=== PATIENT | female | born 1940 | race Caucasian/White ===

== ENCOUNTER 2020-05-04 14:00 | Day surgery (SDC) | payer MEDICARE, OTHER ==
[2020-05-04] VITALS (9 sets, daily range): BP systolic 121–137; BP diastolic 65–79
[~2020-05-04] VITALS: Ht 165.1 cm; Wt 70.0 kg
--- NOTE | 2020-05-04 12:48 | Diagnostic Imaging Report ---
PATIENT HISTORY: Chest pain. Shortness of breath, hypertension. Lethargy. TECHNIQUE: Single frontal view of the chest. COMPARISON: None. FINDINGS: The lung volumes are mildly large. No focal consolidation is seen. No large pleural effusion or pneumothorax is seen. The cardiomediastinal silhouette is normal in size and contour. No acute osseous abnormality is seen. IMPRESSION: Mildly large lung volumes with no acute pulmonary abnormality seen. Dictated by: Dictated on workstation # [id number]
[2020-05-04 12:50] LABS: HEMOGLOBIN 12.8 G/DL (11.5-16.0); MEAN PLATELET VOLUME 9.2 FL (7.4-10.4); RED CELL DISTRIBUTION WIDTH 12.7 % (10.0-14.5); WHITE BLOOD COUNT 6.3 10^3/uL (4.3-11.0)
[2020-05-04 13:11] LABS: PROTHROMBIN TIME PATIENT 13.4 SEC (12.2-14.7)
[2020-05-04 13:12] LABS: ALANINE AMINOTRANSFERASE 14 U/L (0-55); ALBUMIN 4.1 GM/DL (3.2-4.5); ALKALINE PHOSPHATASE 58 U/L (40-136); BILIRUBIN,TOTAL 0.5 MG/DL (0.1-1.0); BUN/CREATININE RATIO 13; CALCIUM 9.7 MG/DL (8.5-10.1); CARBON DIOXIDE 22 MMOL/L (21-32); CHLORIDE 101 MMOL/L (98-107); CHOLESTEROL 201 MG/DL (< 200); CREATININE SERUM 0.85 MG/DL (0.60-1.30); GFR ESTIMATED > 60; GLUCOSE 97 MG/DL (70-105); HDL CHOLESTEROL 56 MG/DL (40-60); SODIUM 135 MMOL/L (135-145); TOTAL PROTEIN 6.9 GM/DL (6.4-8.2); TRIGLYCERIDES 88 MG/DL (<150); VLDL CHOLESTEROL 18 MG/DL (5-40)
--- NOTE | 2020-05-04 13:45 | NUR ---
I SPOKE WITH THE PATIENT AND WENT THROUGH HER MEDICATIONS THAT SHE BROUGHT FROM HOME TO HELP COMPLETE THIS MED REC. LISINOPRIL 10MG LAST FILLED 01/20/20 #90 90DS ISOSORBIDE MONONITRATE ER 30MG LAST FILLED 04/19/2020 #90 90S OTC: ASPIRIN MAGNESIUM TYLENOL IBUPROFEN
[~2020-05-04 14:00] MED LIST: ACET325C7 PO; ACET325T49 PO; ASPI-1238 PO; ASPI-999 PO; HEParin (CATH LAB) 2,000 ML IV ONE; IBUP-2185 PO; ISOS30TA3 PO; LIDOCAINE 1% INJ 20 ML 20 ML VIAL ONE; LISI10TA2 PO; MAGN400T39 PO; NS IV 1000 ML 1,000 ML ONE
[2020-05-04] MEDS ORDERED: fentaNYL INJECTION 100 MCG/2 ML AMP ONE (14:01)
[2020-05-04] MEDS ORDERED: MIDAZOLAM 5 MG/5 ML (VERSED) VIAL ONE (14:01)
--- NOTE | 2020-05-04 14:19 | Cardiac Procedure Note-CS/ASA ---
Pre-Procedure Note Pre-Op Procedure Note H&P Reviewed The H&P was reviewed, patient examined and no changes noted. Date H&P Reviewed: May 04, 2020 Time H&P Reviewed: 14:18 Conscious Sedation Pre-Proced Time 14:18 ASA Score 3 For ASA 3 and 4: Consider anesthesia and medical clearance. Also, for patients with a history of failed moderate sedation consider anesthesia. Airway Lungs Heart ASA score ASA 1: a normal healthy patient ASA 2: a patient with a mild systemic disease (mid diabetes, controlled hypertension, obesity x ASA 3: a patient with a severe systemic disease that limits activity (angina, COPD, prior Myocardial infarction) ASA 4: a patient with an incapacitating disease that is a constant threat to life (CHF, renal failure) ASA 5: a moribund patient not expected to survive 24 hrs. (ruptured aneurysm) ASA 6: a declared brain- patient whose organs are being harvested. For emergent operations, add the letter E after the classification Mallampati Classification Grade 3 Sedation Plan Analgesia, Amnesia, Plan communicated to team members, Discussed options with patient/fam, Discussed risks with patient/fam The patient is an appropriate candidate to undergo the planned procedure, sedation, and anesthesia. The patient immediately re-assessed prior to indication. CARLOS RAMEY MD May 04, 2020 14:19
[2020-05-04] MEDS ORDERED: NS IV 1000 ML 1,000 ML IV SCH (14:51)
--- NOTE | 2020-05-04 14:53 | Discharge Inst-Post CATH ---
Discharge Inst-CATH/EP Problems Reviewed?: Yes Post Cardiac Cath/EP D/C Inst Follow Up/Plan Appointment with Dr. RAMEY's office in 4 weeks <b>CARDIAC CATH/EP PROCEDURE DISCHARGE INSTRUCTIONS</b> ACTIVITY * Go Home directly and rest. * Limit activity of the leg (or wrist if it was used) for 7 days including aerobics, swimming, jogging, bicycling, etc. * Restrict stair-climbing for 7 days if possible, if not, climb up with your non-cath leg, then bring together on the same step. * Avoid lifting, pushing, pulling or excessive movement of the affected extremity for 7 days. * Customary sexual activity may be resumed after 2 days-use caution not to use a position that strains or causes pain to the affected extremity. * No driving for 24 hours. * NO SMOKING. * Avoid straining for bowel movements for 7 days. * Gentle walking on level ground is allowed. * Returning to work will depend on the type of procedure and the results. Your doctor will discuss this with you. CALL YOUR DOCTOR FOR ANY OF THE FOLLOWING: *If bleeding from the puncture site occurs- Apply gentle pressure to site with clean cloth and call your doctor or EMS. * If a knot or lump forms under the skin, increases in size, or causes pain. * If bruising appears to be worsening or moving further down your leg instead of disappearing. * Temperature above 101 F. CARE OF YOUR GROIN INCISION; * Bruising or purple discoloration of the skin near the puncture site is common. * You may shower only, no bathtub bathing for 5 days. Be careful to avoid slipping as your leg may feel stiff. * If a closure device was used on your femoral artery, please see the attached guide regarding care of the device and your leg. * Leave dressing on FOR 24 hours. CARE OF YOUR WRIST INCISION; * Bruising or purple discoloration of the skin near the puncture site is common. * You may shower. * DO NOT submerge wrist. * Leave dressing on FOR 24 hours. CARLOS RAMEY MD May 04, 2020 14:53
--- NOTE | 2020-05-04 14:57 | Cardiac Cath Report ---
Cardiac Cath Report Physician (s)/Conservation Or Heritage Architect (s) Physician CARLOS RAMEY MD Pre-Procedure Diagnosis Pre-Procedure Diagnosis: coronary artery disease Post-Procedure Note Procedure Start Date: May 04, 2020 Name of Procedure: Left heart catheterization Left ventriculogram Aortic arch angiogram Findings/Procedure Note PROCEDURE NOTE: 69 years old lady with history of coronary artery disease, had a stent placed in the remote past. Has been having accelerating angina. Seen in my office with worsening chest pain and shortness of breath on a daily basis. Scheduled for cardiac catheterization possible PTCA. After explaining the procedure to the patient, all pros and cons were explained, all questions were answered. The patient signed the consent and then she was placed on the cardiac catheterization laboratory. Groin was prepped SL fashion local anesthesia was used. Sheath placed in the right femoral artery. Nico right and left catheter were used to access the coronary system. Pigtail was used to access the left ventricular cavity. Left ventriculogram was done Aortic arch angiogram was done At the end of the procedure the sheath was removed. Closure device was used FINDINGS: Hemodynamics LV 106/9 and diastolic pressure of 9 Aorta 116/62 mean of 86 ANATOMY: Left Main is free of obstructive disease, heavily calcified Left Anterior Descending calcified artery, tortuous artery, patent stent in the mid LAD distal to the stent there is a 50 percent stenosis, another area of 5060 percent stenosis at the distal LAD Left Circumflex is large dominant artery with 40-50 percent stenosis of the midportion Right Coronory Artery is small nondominant artery LV Gram is normal in size with good contractility estimated ejection fraction 60 percent Aorta evaluation done due to the heavy calcification in the aorta, angiogram showed no dissection or aneurysm, hypertensive changes and atherosclerotic plaques were noted, normal origin of the left subclavian artery, left carotid artery, brachiocephalic artery CONCLUSION: 1. Heavily calcified left main and LAD with tortuous LAD and patent stent in the mid LAD, distal to the stent there is an area of 50 percent stent stenosis, at the far distal portion of the LAD there is 5060 percent stenosis nonobstructive disease 2. Large dominant circumflex artery with 40-50 percent stenosis at the midportion nonobstructive disease 3. Normal left ventricular size and systolic function estimated ejection fraction 60 percent, normal left ventricular end-diastolic pressure 4. Hypertensive changes in the aortic arch, no dissection or aneurysm DISCUSSION AND RECOMMENDATION: Medical therapy is recommended no intervention is needed Anesthesia Type: Conscious Sedation Estimated blood loss (mL): 15 ml Contrast Amount: 53 ml Total Radiation Dose: 230 mGy Post-Procedure Diagnosis Post-operative diagnosis: Chest pain Shortness of breath Coronary artery disease Hypertension Hyperlipidemia CARLOS RAMEY MD May 04, 2020 14:57
[2020-05-04] MEDS ORDERED: PATIENT MAY USE OWN MEDS, ALL PO SCH (15:00)
[2020-05-04] MEDS ORDERED: ROSU5TAB PO (15:07)
== END 2020-05-04 18:50 ==
LOC: CATH 14:00 → SDC 15:15 → CATH 18:50
PROVIDERS: ATTEND Internal Medicine Cardiovascular Disease
DX: I25.10 Atherosclerotic heart disease of native coronary artery without angina pectoris (principal); I10 Essential (primary) hypertension; E78.5 Hyperlipidemia, unspecified; E78.2 Mixed hyperlipidemia; Z79.82 Long term (current) use of aspirin; Z79.899 Other long term (current) drug therapy; Z88.8 Allergy status to other drugs, medicaments and biological substances
CPT/HCPCS: 36221; 71045; 80053; 80061; 85027; 85610; 85730; 87081; 93458; C1760; C1894; 36415

== ENCOUNTER 2020-05-19 19:01 | Emergency (ER) | payer MEDICARE, OTHER ==
[~2020-05-19] VITALS: Ht 165 cm; Wt 69.9 kg
[~2020-05-19 19:01] MED LIST changes: -HEParin (CATH LAB) 2,000 ML IV ONE; -LIDOCAINE 1% INJ 20 ML 20 ML VIAL ONE; -NS IV 1000 ML 1,000 ML ONE; +ROSU5TAB PO
[2020-05-19] MEDS ORDERED: LIDOCAINE/EPI 2% 1:100,00 (XYLOCAINE) 20 ML VIAL INJ ONE (19:15)
[2020-05-19] MEDS ORDERED: TETANUS,DIPTH,PERTUSS P/F (BOOSTRIX) 0.5 ML VIAL IM ONE (19:15)
--- NOTE | 2020-05-19 19:21 | ED Upper Extremity ---
General Chief Complaint: Upper Extremity Stated Complaint: SKIN TEAR ON ELBOW Nursing Triage Note: PT TO ROOM FS06 VIA EMS WITH C/O RIGHT ELBOW EVULSION. PT REPORTS SHE FELL UP AGAINST A CHAIN LINK FENCE AND TORE SKIN ON ARM. Nursing Sepsis Screen: No Definite Risk Source: patient Exam Limitations: no limitations History of Present Illness Date Seen by Provider: May 19, 2020 Time Seen by Provider: 19:08 Initial Comments The patient is a pleasant 79-year-old female brought in by EMS for evaluation of a laceration to the right elbow. She was leaning up against a chain link fence when she lost her balance because her legs became entangled with each other and she hit the elbow on the fence causing a laceration. She is unsure of her tetanus status of this will be given today. The bleeding is controlled upon arrival. She says that her right shoulder hurts significantly and her right elbow hurts slightly. She is alert and oriented 4, calm, and appears to be in no distress this time. She did not hit her head or lose consciousness and denies any other injuries. Onset: just prior to arrival Severity: mild Pain/Injury Location: right elbow Method of Injury: fell Modifying Factors: Improves With Movement (makes it slightly worse) Allergies and Home Medications Allergies Coded Allergies: meloxicam (Verified Allergy, Severe, 05/04/20) THROAT SWELLING hydrochlorothiazide (Verified Allergy, Intermediate, 05/04/20) DRY MOUTH AND SWOLLEN TONGUE triamterene (Verified Allergy, Intermediate, 05/04/20) DRY MOUTH AND SWOLLEN TONGUE atorvastatin (Verified Allergy, Mild, 05/04/20) MUSCLE ACHES diclofenac (Verified Allergy, Unknown, 05/04/20) Home Medications Acetaminophen 325 Mg Tablet, 325 MG PO Q4H PRN for PAIN-MILD (1-4), (Reported) Aspirin 81 Mg Tablet.dr, 81 MG PO 1500, (Reported) Ibuprofen 200 Mg Capsule, 200 MG PO Q4H PRN for PAIN-MILD (1-4), (Reported) Isosorbide Mononitrate 30 Mg Tab.er.24h, 30 MG PO 1700, (Reported) Lisinopril 10 Mg Tablet, 10 MG PO DAILY, (Reported) Magnesium Oxide 400 Mg Tablet, 400 MG PO DAILY PRN for CONSTIPATION, (Reported) Rosuvastatin Calcium 5 Mg Tablet, 5 MG PO DAILY Prescribed by: CARLOS RAMEY on 05/04/20 1507 Patient Home Medication List Home Medication List Reviewed: Yes Review of Systems Constitutional: no symptoms reported EENTM: no symptoms reported Respiratory: no symptoms reported Cardiovascular: no symptoms reported Gastrointestinal: no symptoms reported Genitourinary: no symptoms reported Musculoskeletal: joint pain (right shoulder injury, right elbow injury) Skin: other (laceration to right upper arm ) Psychiatric/Neurological: No Symptoms Reported All Other Systems Reviewed Negative Unless Noted: Yes Past Vkgsbuo-Dpabpo-Qwgfdl Hx Past Med/Social Hx: Reviewed Nursing Past Med/Soc Hx Patient Social History Alcohol Use: Rarely Uses Alcohol Beverage of Choice: Beer Recreational Drug Use: No Smoking Status: Never a Smoker 2nd Hand Smoke Exposure: No Recent Foreign Travel: No Contact w/Someone Who Travel: No Recent Infectious Disease Expo: No Recent Hopitalizations: Yes (HEART CATH X2 WEEKS) Physical Abuse: No Sexual Abuse: No Mistreated: No Fear: No Immunizations Up To Date Date of Influenza Vaccine: Apr 25, 2020 Seasonal Allergies Seasonal Allergies: No Past Medical History Surgeries: Yes Appendectomy, Coronary Stent, Gallbladder, Hysterectomy, Joint Replacement, Tonsillectomy Respiratory: No Cardiac: Yes Coronary Artery Disease, Hypertension Neurological: Yes Concussion Genitourinary: No Gastrointestinal: No Musculoskeletal: No Endocrine: No HEENT: Yes Cataract Loss of Vision: Denies Hearing Impairment: Denies Cancer: No Psychosocial: No Integumentary: No Blood Disorders: No Physical Exam Vital Signs Vital Signs - First Documented 05/19/20 19:04 Temp 36.6 Pulse 82 Resp 17 B/P (MAP) 160/81 (107) O2 Delivery Room Air Capillary Refill : Less Than 3 Seconds Height, Weight, BMI Height: '" Weight: lbs. oz. kg; 25.00 BMI Method: General Appearance: WD/WN, no apparent distress HEENT: PERRL/EOMI, normal ENT inspection Neck: non-tender, full range of motion, normal inspection Cardiovascular: regular rate, rhythm, no edema, no JVD Respiratory: lungs clear, normal breath sounds, no respiratory distress, no accessory muscle use Back: normal inspection, no CVA tenderness, no vertebral tenderness Shoulder: limited ROM (range of motion testing of the right shoulder limited by patient discomfort, shoulder appears slightly anterior and may be dislocated) Elbow/Forearm: no evidence of injury, normal ROM, Right Wrist: Yes normal inspection, Yes non-tender, Yes no evidence of injury, Yes normal ROM Hand: normal inspection, non-tender, no evidence of injury, normal ROM Neurologic/Tendon: normal sensation, normal motor functions, normal tendon functions, responds to pain Neurologic/Psychiatric: training generalist II-XII nml as tested, no motor/sensory deficits, alert, normal mood/affect, oriented x 3 Skin: other (laceration to right upper posteromedial arm, approx 6cm, irregular, grossly contaminated with grass/plant material, no bleeding, CMS intact distally, FROM) Procedures/Interventions Wound Location: Upper Extremities Other Wound Location right upper posteromedial arm Wound Length (cm): 6 Wound's Depth, Shape: irregular Wound Explored: contaminated (grass/plant material) Irrigated w/ Saline (ccs): 1000 Anesthesia: Lidocaine w/ Epi (2% with epi) Volume Anesthetic (ccs): 6 Suture: Plain Suture Size: 4-0 Number of Sutures: 9 Layer Closure?: 1 Number Deep Layer Sutures: 0 Sterile Dressing Applied?: Yes Splinting and Joint Reduction : Location: right shoulder dislocation Pre-Proc Neuro Vasc Exam: normal Post-Proc Neuro Vasc Exam: normal Joint Reduction Site: shoulder (R) Reduction Attempts: 1 Pre-Procedure NV Exam: Yes post joint reduction film: joint reduced Progress Patient given 75 g of fentanyl for comfort and tolerated the procedure exceptionally well, post-reduction films taken and the patient was placed in a shoulder immobilizer Immobilizers: Large Shoulder Progress/Results/Core Measures Results/Orders My Orders Orders - KANDIS BECKER DO Dipht,Pertuss(Acell),Tet Adult (Boostrix (05/19/20 19:15) Lidocaine/Epi 2% 1:100,000 (Xylocaine/Ep (05/19/20 19:15) Shoulder 3 View Right (05/19/20 19:47) Elbow 3 View Right (05/19/20 19:47) Fentanyl Injection (Sublimaze Injection (05/19/20 20:30) Shoulder 1 View Right (05/19/20 20:27) Shoulder Immoblizer (05/19/20 21:17) Medications Given in ED Current Medications Medications Dose Ordered Sig/Rigoberto Route Start Time Stop Time Status Last Admin Dose Admin Diphtheria/ Tetanus/Acell Pertussis 0.5 ml ONCE ONCE IM 05/19/20 19:15 05/19/20 19:16 DC 9/17/20 21:06 0.5 ML Fentanyl Citrate 75 mcg ONCE ONCE IVP 05/19/20 20:30 05/19/20 20:31 DC 05/19/20 21:03 75 MCG Lidocaine/ Epinephrine 20 ml ONCE ONCE INJ 05/19/20 19:15 05/19/20 19:16 DC 05/19/20 19:30 20 ML Vital Signs/I&O 05/19/20 19:04 Temp 36.6 Pulse 82 Resp 17 B/P (MAP) 160/81 (107) O2 Delivery Room Air Blood Pressure Mean: 107 Progress Progress Note : Progress Note @2124 - postreduction film shows successful shoulder reduction. The patient tolerated the procedure well and states that she feels much better. Advised that the stitches need to be removed in 10 days. Advised follow-up with orthopedics in the next 2-3 days and continued wearing of the shoulder immobilizer until cleared by orthopedics. The patient expresses verbal understanding and agreement with the plan and is stable for discharge. Diagnostic Imaging Diagonstic Imaging: Xray Comments [facility] [place], [place] NAME: ANNA MCMAHON [facility] REC#: [id number] PT STATUS: REG ER : 1940 PHYSICIAN: KANDIS BECKER DO ADMIT DATE: 05/19/20/ER FS Draft Date of Exam:05/19/20 SHOULDER 3 VIEW RIGHT INDICATION: Fall, right shoulder pain. EXAMINATION: Right shoulder, 05/19/2020. FINDINGS: Single view of the shoulder demonstrates a likely subcoracoid dislocation of the humeral head. The lack of an axillary or scapular Y view limits evaluation. Postreduction imaging recommended. Remaining osseous structures are intact. The right lung is clear. IMPRESSION: Likely subcoracoid dislocation of the humeral head. Postreduction imaging recommended. Dictated on workstation # [id number] Dict: 05/19/202037 Trans: 05/19/202044 [facility] [id number] Interpreted by: QIANA MCCURDY MD Electronically signed by: Departure Impression Primary Impression: Laceration of right upper arm Additional Impression: Dislocation of right shoulder joint Disposition: HOME, SELF-CARE Condition: Stable Departure-Patient Inst. Decision time for Depature: 21:21 Referrals: KAYKAY CRUZ MD Patient Instructions: Laceration Repair With Stitches (DC), Shoulder Dislocation Add. Discharge Instructions: Take the prescribed medicine as directed, as needed. Follow-up with orthopedics in the next 2-3 days. Return to the emergency department immediately for new or worsening symptoms. Your stitches should be removed in 10 days and even return to this emergency department to have them taken out. Scripts Hydrocodone/Acetaminophen (Hydrocodone-Acetamin 5-325 mg) 1 Each Tablet 1 EACH PO Q4H for Pain for 7 Days, #20 TAB Prov: KANDIS BECKER DO 05/19/20 KANDIS BECKER DO May 19, 2020 19:21
[2020-05-19] MEDS ORDERED: HYDROcodone/APAP 5 MG/325 MG (LORTAB) TAB PO ONE (20:00)
[2020-05-19] MEDS ORDERED: fentaNYL INJECTION 100 MCG/2 ML AMP IVP ONE (20:30)
--- NOTE | 2020-05-19 20:45 | Diagnostic Imaging Report ---
INDICATION: Fall, right shoulder pain. EXAMINATION: Right shoulder, 05/19/2020. FINDINGS: Single view of the shoulder demonstrates a likely subcoracoid dislocation of the humeral head. The lack of an axillary or scapular Y view limits evaluation. Postreduction imaging recommended. Remaining osseous structures are intact. The right lung is clear. IMPRESSION: Likely subcoracoid dislocation of the humeral head. Postreduction imaging recommended. Dictated by: Dictated on workstation # [id number]
--- NOTE | 2020-05-19 20:47 | Diagnostic Imaging Report ---
INDICATION: Fall, laceration and pain in the elbow. EXAMINATION: Right elbow, 05/19/2020. FINDINGS: Three views of the elbow. There is diffuse subcutaneous irregularity along the medial aspect of the elbow. The osseous structures are intact. No fracture or dislocation visualized. No joint effusion. IMPRESSION: No acute osseous abnormality. Dictated by: Dictated on workstation # [id number]
[2020-05-19] MEDS ORDERED: ACHD5005 PO (21:25)
--- NOTE | 2020-05-19 21:27 | Diagnostic Imaging Report ---
INDICATION: Patient fell, post shoulder reduction. EXAMINATION: Right shoulder, 05/19/2020. COMPARISON: Same date at an earlier time. FINDINGS: Single view of the shoulder demonstrates better alignment of the humerus in relation to the glenoid. There are degenerative findings along the acromioclavicular joint. IMPRESSION: Better alignment of the previously noted dislocation. Dictated by: Dictated on workstation # [id number]
[2020-05-19 21:42] VITALS: BP 129/70
== END 2020-05-19 21:42 | disposition home or self-care (01) ==
LOC: EDUNIT# 19:01 → ER FS 19:02
DX: S41.111A Laceration without foreign body of right upper arm, initial encounter (principal); S43.004A Unspecified dislocation of right shoulder joint, initial encounter; I10 Essential (primary) hypertension; I25.10 Atherosclerotic heart disease of native coronary artery without angina pectoris; Z95.5 Presence of coronary angioplasty implant and graft; Z88.8 Allergy status to other drugs, medicaments and biological substances; Z23 Encounter for immunization; Z79.82 Long term (current) use of aspirin; Z87.820 Personal history of traumatic brain injury; W18.39XA Other fall on same level, initial encounter
CPT/HCPCS: 24200; 73020; 73030; 73080; 90715

== ENCOUNTER 2020-05-29 09:41 | Emergency (ER) | payer MEDICARE, OTHER ==
[~2020-05-29] VITALS: Ht 165 cm; Wt 69.9 kg
[~2020-05-29 09:41] MED LIST changes: +ACHD5005 PO
[2020-05-29] MEDS ORDERED: CEPHALEXIN 250 MG (KEFLEX) CAP PO STA (10:27)
[2020-05-29] MEDS ORDERED: CEPH500T PO (10:27)
--- NOTE | 2020-05-29 10:27 | ED General ---
General Chief Complaint: Skin/Wound Problems Stated Complaint: SUTURE REMOVAL Source of Information: Patient History of Present Illness Date Seen by Provider: May 29, 2020 Time Seen by Provider: 09:48 Initial Comments 79-year-old female presenting with laceration to her right arm just above her elbow. She had this repaired on May 19. She states that when this happened it was a dirty wound and had a lot of grass and debris in it. She reports that the provider told her that the cleaned it out really well. She denies being placed on any antibiotics. She denies any fever or chills. She does have increasing pain, redness, swelling, warmth with some bloody drainage at the site of the laceration and wound. She has not been changing the dressing to the laceration. She was unsure if she was supposed to be doing any dressing changes. She had been seen by orthopedics for her shoulder but had not followed up with anyone until today about the laceration. Allergies and Home Medications Allergies Coded Allergies: meloxicam (Verified Allergy, Severe, 05/04/20) THROAT SWELLING hydrochlorothiazide (Verified Allergy, Intermediate, 05/04/20) DRY MOUTH AND SWOLLEN TONGUE triamterene (Verified Allergy, Intermediate, 05/04/20) DRY MOUTH AND SWOLLEN TONGUE atorvastatin (Verified Allergy, Mild, 05/04/20) MUSCLE ACHES diclofenac (Verified Allergy, Unknown, 05/04/20) Home Medications Acetaminophen 325 Mg Tablet, 325 MG PO Q4H PRN for PAIN-MILD (1-4), (Reported) Aspirin 81 Mg Tablet.dr, 81 MG PO 1500, (Reported) Cephalexin 500 Mg Tablet, 500 MG PO QID Prescribed by: JEFFERY MARKS on 05/29/20 1027 Hydrocodone/Acetaminophen 1 Each Tablet, 1 EACH PO Q4H Prescribed by: KANDIS BECKER on 05/19/20 2125 Ibuprofen 200 Mg Capsule, 200 MG PO Q4H PRN for PAIN-MILD (1-4), (Reported) Isosorbide Mononitrate 30 Mg Tab.er.24h, 30 MG PO 1700, (Reported) Lisinopril 10 Mg Tablet, 10 MG PO DAILY, (Reported) Magnesium Oxide 400 Mg Tablet, 400 MG PO DAILY PRN for CONSTIPATION, (Reported) Rosuvastatin Calcium 5 Mg Tablet, 5 MG PO DAILY Prescribed by: CARLOS RAMEY on 05/04/20 1507 Patient Home Medication List Home Medication List Reviewed: Yes Review of Systems Review of Systems Constitutional: No chills, No fever EENTM: no symptoms reported Respiratory: no symptoms reported Cardiovascular: no symptoms reported Gastrointestinal: no symptoms reported Genitourinary: no symptoms reported Musculoskeletal: see HPI Skin: see HPI Psychiatric/Neurological: See HPI Past Erwpqzk-Yrenbx-Dvugqr Hx Past Med/Social Hx: Reviewed Nursing Past Med/Soc Hx Patient Social History Alcohol Beverage of Choice: Beer 2nd Hand Smoke Exposure: No Recent Hopitalizations: Yes (HEART CATH X2 WEEKS) Immunizations Up To Date Date of Influenza Vaccine: Apr 25, 2020 Seasonal Allergies Seasonal Allergies: No Past Medical History Surgeries: Yes Appendectomy, Coronary Stent, Gallbladder, Hysterectomy, Joint Replacement, Tonsillectomy Respiratory: No Cardiac: Yes Coronary Artery Disease, Hypertension Neurological: Yes Concussion Genitourinary: No Gastrointestinal: No Musculoskeletal: No Endocrine: No HEENT: Yes Cataract Loss of Vision: Denies Hearing Impairment: Denies Cancer: No Psychosocial: No Integumentary: No Blood Disorders: No Physical Exam Vital Signs Capillary Refill : Height, Weight, BMI Height: '" Weight: lbs. oz. 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 Norm as Tested Skin: Erythema (erythema with induration, increased warmth, swelling, bloody drainage from the healing laceration just proximal to her right elbow) Lymphatic: Axilla Node Tender (R) Procedures/Interventions Suture Size: 4-0 Progress/Results/Core Measures Suspected Sepsis SIRS Temperature: Pulse: Respiratory Rate: Blood Pressure / Mean: Results/Orders My Orders Orders - JEFFERY MARKS MD Cephalexin Capsule (Keflex Capsule) (05/29/20 10:27) Wound Dressing-Ed (05/29/20 10:27) Vital Signs/I&O Capillary Refill : Progress Note : Progress Note The nurse cleaned the wound with chlorhexidine and sterile saline. Then using Triple Antibiotic and a nonadherent dressing a new sterile dressing was applied. Patient was counseled to change dressing at least twice a day. She is to wash the area at least twice a day with soap and water and not to soak it. Return in one week if not sooner Departure Impression Primary Impression: Infected laceration of skin Disposition: 01 HOME, SELF-CARE Condition: Stable Departure-Patient Inst. Decision time for Depature: 10:24 Referrals: MARY KAY QUINTANA MD (PCP) Primary Care Physician Patient Instructions: Laceration Infection (DC) Add. Discharge Instructions: Take full course of antibiotics to help with infection. Wash wound 2 times a day with soap and water but do not soak it. Apply antibiotic ointment and non stick dressing 2 times a day. Return in a week to see about removing stitches. Return sooner or be seen in clinic if having more problems such as fever over 101 F, redness streaking up your arm or pus draining from the laceration wound. All discharge instructions reviewed with patient and/or family. Voiced understanding. Scripts Cephalexin (Cephalexin) 500 Mg Tablet 500 MG PO QID for cellulitis for 10 Days, #40 TAB 0 Refills Prov: JEFFERY MARKS MD 05/29/20 Images Full Body/Extremities Full 1 - Cellulitis, Edema, Swelling, Tenderness, Other-See Progress Note Progress Area of erythema, induration, increased warmth, swelling, tenderness, and bloody drainage from the healing laceration just proximal to the right elbow. JEFFERY MARKS MD May 29, 2020 10:27
[2020-05-29 10:42] VITALS: BP 140/73
== END 2020-05-29 10:42 | disposition home or self-care (01) ==
LOC: EDUNIT# 09:41 → ER FS 09:42
DX: L08.89 Other specified local infections of the skin and subcutaneous tissue (principal); I10 Essential (primary) hypertension; Z87.820 Personal history of traumatic brain injury; Z95.5 Presence of coronary angioplasty implant and graft; Z88.8 Allergy status to other drugs, medicaments and biological substances; Z79.82 Long term (current) use of aspirin
CPT/HCPCS: 99283

== ENCOUNTER 2020-07-11 10:56 | Emergency (ER) | payer MEDICARE, OTHER ==
[~2020-07-11] VITALS: Ht 165.1 cm; Wt 68.1 kg
[~2020-07-11 10:56] MED LIST changes: +CEPH500T PO
[2020-07-11] MEDS ORDERED: morphine INJ 10 MG/ML 1ML (SYR OR VIAL) IVP STA (11:18)
[2020-07-11] MEDS ORDERED: ANTACID SUSP 30 ML UDC (MYLANTA) PO ONE (11:30)
[2020-07-11] MEDS ORDERED: PANTOPRAZOLE 40 MG (PROTONIX) VIAL IV ONE (11:30)
[2020-07-11] MEDS ORDERED: ASPIRIN 81 MG CHEW (CHILDREN'S ASA) PO ONE (11:30)
[2020-07-11] MEDS ORDERED: ONDANSETRON 4 MG/2 ML (SDV) Z0FRAN IVP ONE (11:30)
[2020-07-11] MEDS ORDERED: LIDOCAINE 2% VISCOUS 15 ML UDC PO ONE (11:30)
[2020-07-11 11:32] LABS: HEMATOCRIT 39 % (35-52); HEMOGLOBIN 13.4 G/DL (11.5-16.0); MEAN CORPUSCULAR HEMOGLOBIN 33 PG (25-34); MEAN CORPUSCULAR HGB CONC 34 G/DL (32-36); MEAN CORPUSCULAR VOLUME 97 FL (80-99); WHITE BLOOD COUNT 8.2 10^3/uL (4.3-11.0)
[2020-07-11 11:33] LABS: BASOPHILS % (AUTO) 0 % (0-10); EOSINOPHILS # (AUTO) 0.1 10^3/uL (0.0-0.3); EOSINOPHILS % (AUTO) 1 % (0-10); LYMPHOCYTES # (AUTO) 1.6 X 10^3 (1.0-4.0); LYMPHOCYTES % (AUTO) 20 % (12-44); MEAN PLATELET VOLUME 9.2 FL (7.4-10.4); MONOCYTES # (AUTO) 0.5 X 10^3 (0.0-1.0); MONOCYTES % (AUTO) 7 % (0-12); NEUTROPHILS # (AUTO) 5.8 X 10^3 (1.8-7.8); NEUTROPHILS % (AUTO) 72 % (42-75); PLATELET COUNT 184 10^3/uL (130-400)
[2020-07-11 11:43] LABS: FIBRIN DEGRADATION PRODUCTS 0.86 UG/ML (0.00-0.49); PROTHROMBIN TIME PATIENT 13.8 SEC (12.2-14.7)
--- NOTE | 2020-07-11 11:48 | ED General ---
General Chief Complaint: Chest Pain Stated Complaint: CHEST PAIN History of Present Illness Date Seen by Provider: Jul 11, 2020 Time Seen by Provider: 11:46 Initial Comments Patient presenting to the emergency department for evaluation of chest pain that started approximately 3:00 in the morning. She says she usually wakes up at 1:00 as she did today and she was just laying in bed for 2 hours and then all of a sudden felt pressure in her lower chest and upper abdominal region that did not radiate caused her nausea. She denied any vomiting or diaphoresis. She says that she has a history of coronary disease that she had a stent placed 7 years ago after a dizziness episode and then she had a heart catheterization 2 months ago that was normal and no more stenting as needed. She says she has a history of hypertension but no diabetes high cholesterol or smoking. She says the pain has eased up quite a bit but is still present and has been constant since 3:00 in the morning. She is in no obvious distress with normal vital signs except for hypertension noted. Allergies and Home Medications Allergies Coded Allergies: meloxicam (Verified Allergy, Severe, 05/04/20) THROAT SWELLING hydrochlorothiazide (Verified Allergy, Intermediate, 05/04/20) DRY MOUTH AND SWOLLEN TONGUE triamterene (Verified Allergy, Intermediate, 05/04/20) DRY MOUTH AND SWOLLEN TONGUE atorvastatin (Verified Allergy, Mild, 05/04/20) MUSCLE ACHES diclofenac (Verified Allergy, Unknown, 05/04/20) Home Medications Acetaminophen 325 Mg Tablet, 325 MG PO Q4H PRN for PAIN-MILD (1-4), (Reported) Aspirin 81 Mg Tablet.dr, 81 MG PO 1500, (Reported) Ibuprofen 200 Mg Capsule, 200 MG PO Q4H PRN for PAIN-MILD (1-4), (Reported) Isosorbide Mononitrate 30 Mg Tab.er.24h, 30 MG PO 1700, (Reported) Lisinopril 10 Mg Tablet, 10 MG PO DAILY, (Reported) Magnesium Oxide 400 Mg Tablet, 400 MG PO DAILY PRN for CONSTIPATION, (Reported) Omeprazole 40 Mg Capsule.dr, 40 MG PO DAILY Prescribed by: JONATHAN PURVIS on 07/11/20 1352 Ondansetron 4 Mg Tab.rapdis, 4 MG PO Q6H PRN for NAUSEA/VOMITING-1ST LINE Prescribed by: JONATHAN PURVIS on 07/11/20 1355 Oxycodone HCl 5 Mg Tablet, 5 MG PO Q6H PRN for PAIN-SEVERE (8-10) Prescribed by: JONATHAN PURVIS on 07/11/20 1357 Rosuvastatin Calcium 5 Mg Tablet, 5 MG PO DAILY Prescribed by: CARLOS RAMEY on 05/04/20 1507 Patient Home Medication List Home Medication List Reviewed: Yes Review of Systems Review of Systems Constitutional: no symptoms reported EENTM: no symptoms reported Respiratory: no symptoms reported Gastrointestinal: nausea Genitourinary: no symptoms reported Musculoskeletal: no symptoms reported Skin: no symptoms reported Psychiatric/Neurological: No Symptoms Reported All Other Systems Reviewed Negative Unless Noted: Yes Past Smikkqv-Ufmuyh-Zdetwz Hx Patient Social History Alcohol Use: Denies Use Number of Drinks Today: AA Alcohol Beverage of Choice: Beer Recreational Drug Use: No Smoking Status: Never a Smoker 2nd Hand Smoke Exposure: No Recent Foreign Travel: No Contact w/Someone Who Travel: No Recent Hopitalizations: Yes (HEART CATH X2 WEEKS) Physical Abuse: No Sexual Abuse: No Mistreated: No Fear: No Immunizations Up To Date Date of Influenza Vaccine: Apr 25, 2020 Seasonal Allergies Seasonal Allergies: No Past Medical History Surgeries: Yes Appendectomy, Coronary Stent, Gallbladder, Hysterectomy, Joint Replacement, Tonsillectomy Respiratory: No Cardiac: Yes Coronary Artery Disease, Hypertension Neurological: Yes Concussion Genitourinary: No Gastrointestinal: No Musculoskeletal: No Endocrine: No HEENT: Yes Cataract Loss of Vision: Denies Hearing Impairment: Denies Cancer: No Psychosocial: No Integumentary: No Blood Disorders: No Physical Exam Vital Signs Vital Signs - First Documented 07/11/20 10:58 Temp 36.4 Pulse 73 Resp 20 B/P (MAP) 153/97 (115) Pulse Ox 99 O2 Delivery Room Air Capillary Refill : Height, Weight, BMI Height: '" Weight: lbs. oz. kg; 25.00 BMI Method: General Appearance: No Apparent Distress, WD/WN HEENT: PERRL/EOMI Neck: Supple Respiratory: Lungs Clear, No Respiratory Distress Cardiovascular: Regular Rate, Rhythm, No Edema Gastrointestinal: Soft, Tenderness (epigastric ttp, no rebound or guarding) Back: Normal Inspection Extremity: Normal Capillary Refill Neurologic/Psychiatric: Alert, Oriented x3 Skin: Warm/Dry Procedures/Interventions Suture Size: 4-0 Progress/Results/Core Measures Suspected Sepsis SIRS Temperature: Pulse: Respiratory Rate: Laboratory Tests 07/11/20 11:20: White Blood Count 8.2 Blood Pressure / Mean: Laboratory Tests 07/11/20 11:20: Creatinine 0.96, INR Comment 1.0, Platelet Count 184, Total Bilirubin 0.8 Results/Orders Lab Results Laboratory Tests Test 07/11/20 11:20 Range/Units White Blood Count 8.2 4.3-11.0 10^3/uL Red Blood Count 4.07 L 4.35-5.85 10^6/uL Hemoglobin 13.4 11.5-16.0 G/DL Hematocrit 39 35-52 % Mean Corpuscular Volume 97 80-99 FL Mean Corpuscular Hemoglobin 33 25-34 PG Mean Corpuscular Hemoglobin Concent 34 32-36 G/DL Red Cell Distribution Width 12.1 10.0-14.5 % Platelet Count 184 130-400 10^3/uL Mean Platelet Volume 9.2 7.4-10.4 FL Immature Granulocyte % (Auto) 0 % Neutrophils (%) (Auto) 72 42-75 % Lymphocytes (%) (Auto) 20 12-44 % Monocytes (%) (Auto) 7 0-12 % Eosinophils (%) (Auto) 1 0-10 % Basophils (%) (Auto) 0 0-10 % Neutrophils # (Auto) 5.8 1.8-7.8 X 10^3 Lymphocytes # (Auto) 1.6 1.0-4.0 X 10^3 Monocytes # (Auto) 0.5 0.0-1.0 X 10^3 Eosinophils # (Auto) 0.1 0.0-0.3 10^3/uL Basophils # (Auto) 0.0 0.0-0.1 10^3/uL Immature Granulocyte # (Auto) 0.0 0.0-0.1 10^3/uL Prothrombin Time 13.8 12.2-14.7 SEC INR Comment 1.0 0.8-1.4 Activated Partial Thromboplast Time 27 24-35 SEC D-Dimer 0.86 H 0.00-0.49 UG/ML Sodium Level 135 135-145 MMOL/L Potassium Level 3.8 3.6-5.0 MMOL/L Chloride Level 99 98-107 MMOL/L Carbon Dioxide Level 24 21-32 MMOL/L Anion Gap 12 5-14 MMOL/L Blood Urea Nitrogen 16 7-18 MG/DL Creatinine 0.96 0.60-1.30 MG/DL Estimat Glomerular Filtration Rate 56 BUN/Creatinine Ratio 17 Glucose Level 100 70-105 MG/DL Calcium Level 9.6 8.5-10.1 MG/DL Corrected Calcium 9.2 8.5-10.1 MG/DL Total Bilirubin 0.8 0.1-1.0 MG/DL Aspartate Amino Transf (AST/SGOT) 167 H 5-34 U/L Alanine Aminotransferase (ALT/SGPT) 94 H 0-55 U/L Alkaline Phosphatase 85 40-136 U/L Troponin I < 0.30 <0.30 NG/ML Pro-B-Type Natriuretic Peptide 84.5 H <75.0 PG/ML Total Protein 7.1 6.4-8.2 GM/DL Albumin 4.5 3.2-4.5 GM/DL Lipase 56 8-78 U/L My Orders Orders - JONATHAN PURVIS DO Cbc With Automated Diff (07/11/20 11:18) Comprehensive Metabolic Panel (07/11/20 11:18) Iv/Invasive Line Insertion .IV start (07/11/20 11:18) Fibrin Degradation Products (07/11/20 11:18) Lipase (07/11/20 11:18) Probnp Fs (07/11/20 11:18) Partial Thromboplastin Time (07/11/20 11:18) Protime With Inr (07/11/20 11:18) Troponin I Fs (07/11/20 11:18) Chest 1 View Ap/Pa Only (07/11/20 11:18) Ekg Tracing (07/11/20 11:18) Ondansetron Injection (Zofran Injectio (07/11/20 11:30) Morphine Injection (Morphine Injection (07/11/20 11:18) Antacid Suspension (Mylanta Suspension (07/11/20 11:30) Lidocaine 2% Viscous 15 Ml (Xylocaine Vi (07/11/20 11:30) Pantoprazole Injection (Protonix Injecti (07/11/20 11:30) Aspirin Chewable Tablet (Baby Aspirin Ch (07/11/20 11:30) Ct Carmela Chest/Noang Abd-Pelv W (07/11/20 11:57) Iohexol Injection (Omnipaque 350 Mg/Ml 1 (07/11/20 12:45) Received Contrast (Hold Metformin- Contr (07/11/20 12:45) Sodium Chloride Flush (Catheter Flush Sy (07/11/20 12:45) Ns (Ivpb) (Sodium Chloride 0.9% Ivpb Bag (07/11/20 12:45) Medications Given in ED Current Medications Medications Dose Ordered Sig/Rigoberto Route Start Time Stop Time Status Last Admin Dose Admin Al Hydrox/Mg Hydrox/Simethicone 30 ml ONCE ONCE PO 07/11/20 11:30 07/11/20 11:31 DC 07/11/20 11:36 30 ML Aspirin 324 mg ONCE ONCE PO 07/11/20 11:30 07/11/20 11:31 DC 07/11/20 11:35 324 MG Lidocaine HCl 5 ml ONCE ONCE PO 07/11/20 11:30 07/11/20 11:31 DC 07/11/20 11:36 5 ML Ondansetron HCl 4 mg ONCE ONCE IVP 07/11/20 11:30 07/11/20 11:31 DC 07/11/20 11:35 4 MG Pantoprazole 80 mg ONCE ONCE IV 07/11/20 11:30 07/11/20 11:31 DC 07/11/20 11:33 80 MG Vital Signs/I&O 07/11/20 07/11/20 10:58 10:58 Temp 36.4 Pulse 73 Resp 20 B/P (MAP) 153/97 (115) Pulse Ox 99 O2 Delivery Room Air Room Air Capillary Refill : Progress Note : Progress Note Will check labs imaging treat symptoms and reassess. Patient had extensive workup and her EKG and troponin is negative more than 6 hours out from onset of symptoms and she just had a negative heart catheter ization 2 months ago. Her workup only showed that she had multiple incidental findings including transaminitis and findings on CT that were discussed with patient and daughter Yolande over the phone. Patient's pain completely resolved emergency department and she was drinking fluids with no difficulty. I told him that I highly suspect this is likely 8 GI source to her pain and that she has been taking ibuprofen frequently for her shoulder and to stop taking ibuprofen and I'll prescribe her for oxycodone for breakthrough pain and that she should avoid Tylenol and alcohol as well. Daughter related that GI workup including upper and lower endoscopy was recommended however patient refused. I told patient and daughter that I do think it is a good idea to follow with primary care provider and GI within the next 2-3 days for recheck and that she should come back to the ED sooner with worsening pain fevers vomiting or other general concerns. Patient and daughter aware and agreeable with plan and verbalized understanding of the above instructions. Departure Impression Primary Impression: Chest pain Qualified Codes: R07.9 - Chest pain, unspecified Additional Impressions: Epigastric abdominal pain Transaminitis Disposition: HOME, SELF-CARE Condition: Stable Departure-Patient Inst. Referrals: MARY KAY QUINTANA MD (PCP/Family) Primary Care Physician Scripts Oxycodone HCl (Oxycodone HCl) 5 Mg Tablet 5 MG PO Q6H PRN for PAIN-SEVERE (8-10), #10 TAB Prov: JONATHAN PURVIS DO 07/11/20 Omeprazole (Omeprazole) 40 Mg Capsule.dr 40 MG PO DAILY, #30 CAP Prov: JONATHAN PURVIS DO 07/11/20 Ondansetron (Ondansetron Odt) 4 Mg Tab.rapdis 4 MG PO Q6H PRN for NAUSEA/VOMITING-1ST LINE, #10 TAB Prov: JONATHAN PURVIS DO 07/11/20 JONATHAN PURVIS DO Jul 11, 2020 11:48
[2020-07-11 11:53] LABS: ALANINE AMINOTRANSFERASE 94 U/L (0-55); ALBUMIN 4.5 GM/DL (3.2-4.5); ALKALINE PHOSPHATASE 85 U/L (40-136); BILIRUBIN,TOTAL 0.8 MG/DL (0.1-1.0); BUN/CREATININE RATIO 17; CALCIUM 9.6 MG/DL (8.5-10.1); CARBON DIOXIDE 24 MMOL/L (21-32); CHLORIDE 99 MMOL/L (98-107); CREATININE SERUM 0.96 MG/DL (0.60-1.30); GFR ESTIMATED 56; GLUCOSE 100 MG/DL (70-105); LIPASE 56 U/L (8-78); POTASSIUM 3.8 MMOL/L (3.6-5.0); SODIUM 135 MMOL/L (135-145); TOTAL PROTEIN 7.1 GM/DL (6.4-8.2)
--- NOTE | 2020-07-11 12:08 | Diagnostic Imaging Report ---
Indication: Chest pain. Time of exam: 11:23 AM Correlation is made prior chest 05/04/2020. The heart size is normal. The pulmonary vascularity is unremarkable. The lungs are clear. No infiltrate, effusion or pneumothorax is detected. Impression: No acute cardiopulmonary process is detected. Dictated by: Dictated on workstation # [id number]
--- NOTE | 2020-07-11 12:40 | NUR ---
Apologeticly gave update to family as they waited. ED busy and a 4 person assistance in a room for 30 min. janice Oconnell is updated and leaving briefly for a break and returning in 1 hr and we will call sooner if a determination of plan decided after results
[2020-07-11] MEDS ORDERED: CATHETER FLUSH 10 ML SYR IV PRN (12:45)
[2020-07-11] MEDS ORDERED: HOLD METFORMIN - RECEIVED CONTRAST 20 ML VIAL IV SCH (12:45)
[2020-07-11] MEDS ORDERED: NS 100 ML (IVPB) BAG IV ONE (12:45)
[2020-07-11] MEDS ORDERED: IOHEXOL 350 MG/ML 150 ML (OMNIPAQUE 350) VIAL IV ONE (12:45)
--- NOTE | 2020-07-11 13:00 | NUR ---
Report to Joe JOINER. is updated that dgt was aware of where we are and pending status. She reports the patient was "odd acting" this weekend. "Mom was not sharp at all with remembering dates and almost tripped on steps walking."
[2020-07-11] MEDS ORDERED: [UNRECOGNIZED DRUG - CODE] (13:39)
--- NOTE | 2020-07-11 13:40 | Diagnostic Imaging Report ---
INDICATION: Chest pain and elevated d-dimer. EXAMINATION: CTA chest, abdomen, and pelvis. TECHNIQUE: Thin axial sections through the chest, abdomen, and pelvis were obtained following intravenous contrast bolus. Multiplanar MIP images were reconstructed and reviewed. All CT scans use one or more of the following dose optimizing techniques: automated exposure control, MA and/or KvP adjustment based on patient size and exam type or iterative reconstruction. COMPARISON: No prior studies are available for comparison. FINDINGS: CT ANGIOGRAM CHEST: Evaluation of the pulmonary arterial system is without evidence of thromboembolism. No filling defects are seen within central, lobar, or segmental branches. The thoracic aorta is of normal caliber. No dissection is identified. No pericardial or pleural fluid is identified. No pulmonary infiltrates, nodules, or masses are detected. IMPRESSION: Unremarkable CT angiogram of the chest. There is no evidence of pulmonary embolism or thoracic aortic dissection. CT ABDOMEN AND PELVIS: The intrahepatic and extrahepatic bile ducts are dilated. The gallbladder is surgically absent and the findings could be owing to post cholecystectomy. No discrete liver mass is identified. The pancreas and spleen are unremarkable. No adrenal mass is detected. The kidneys are unremarkable. The aorta is calcified but non aneurysmal. No aortic dissection is seen. The bowel loops are of normal caliber. There is no obstruction. There is moderate diverticulosis of the sigmoid colon but no evidence of acute diverticulitis. No free fluid or fluid collection is seen. There is a large amount of artifact through the pelvis from the patient's bilateral hip prostheses. This limits evaluation of the bladder. There is grade 1 spondylolisthesis of L5 on S1. IMPRESSION: 1. Status post cholecystectomy. The intrahepatic and extrahepatic bile ducts are prominent, perhaps owing to post cholecystectomy. 2. Uncomplicated diverticulosis. 3. No other significant abnormality is detected. Dictated by: Dictated on workstation # [id number]
[2020-07-11] MEDS ORDERED: ONDA4TAB11 PO (13:55)
[2020-07-11] MEDS ORDERED: OMEP40CA27 PO (13:55)
[2020-07-11] MEDS ORDERED: OXYC5TAB PO (13:57)
[2020-07-11 14:17] VITALS: BP 147/88
== END 2020-07-11 14:08 | disposition home or self-care (01) ==
LOC: EDUNIT# 10:56 → ER FS 10:57
DX: R07.89 Other chest pain (principal); R10.13 Epigastric pain; R74.01 Elevation of levels of liver transaminase levels; I10 Essential (primary) hypertension; I25.10 Atherosclerotic heart disease of native coronary artery without angina pectoris; Z95.5 Presence of coronary angioplasty implant and graft; Z95.9 Presence of cardiac and vascular implant and graft, unspecified; Z79.82 Long term (current) use of aspirin; Z88.6 Allergy status to analgesic agent; Z88.8 Allergy status to other drugs, medicaments and biological substances; W06.XXXA Fall from bed, initial encounter
CPT/HCPCS: 36415; 71045; 71275; 74177; 80053; 83690; 83880; 84484; 85025; 85379; 85610; 85730

== ENCOUNTER 2020-07-27 05:50 | Outpatient (RCR) | payer MEDICARE, OTHER ==
[~2020-07-27] VITALS: Ht 157.5 cm; Wt 65.5 kg
[~2020-07-27 05:50] MED LIST changes: +OMEP40CA27 PO; +ONDA4TAB11 PO; +OXYC5TAB PO; +[UNRECOGNIZED DRUG - CODE]
== END 2020-07-27 09:41 | disposition home or self-care (01) ==
LOC: PREOP 05:50
PROVIDERS: ATTEND Surgery
DX: Z01.818 Encounter for other preprocedural examination (principal)

== ENCOUNTER → 2020-07-29 | Outpatient (CLI) | payer MEDICARE, OTHER | LOC: LAB FS 10:10 | PROVIDERS: ATTEND Surgery | DX: Z01.812 Encounter for preprocedural laboratory examination (principal); K21.9 Gastro-esophageal reflux disease without esophagitis; Z20.828 Contact with and (suspected) exposure to other viral communicable diseases | CPT/HCPCS: 87635 ==

== ENCOUNTER 2020-08-01 07:56 | Day surgery (SDC) | payer MEDICARE, OTHER ==
[~2020-08-01] VITALS: Ht 157.5 cm; Wt 65.5 kg
[2020-08-01] VITALS (7 sets, daily range): BP systolic 92–143; BP diastolic 51–79
[~2020-08-01 07:56] MED LIST changes: +LACTATED RINGERS 1,000 ML IV STA
[2020-08-01] MEDS ORDERED: HURRICAINE EXT TUBE (BENZOCAINE) XX PRN (08:00)
[2020-08-01] MEDS ORDERED: PROPOFOL INJECTION 50 ML IV ONE (08:07)
[2020-08-01] MEDS ORDERED: MIDAZOLAM 2 MG/2 ML (VERSED) VIAL ONE (08:07)
[2020-08-01] MEDS ORDERED: LACTATED RINGERS 1,000 ML IV ONE (08:10)
--- NOTE | 2020-08-01 09:02 | Progress Note-Post Operative ---
Post-Operative Progess Note Surgeon (s)/Audit Specialist (s) Surgeon CHAYO IBRAHIM DO Audit Specialist: none Pre-Operative Diagnosis GERD, reflux Post-Operative Diagnosis Gastritis Procedure & Operative Findings Date of Procedure 08/01/20 Procedure Performed/Findings EGD with bx Anesthesia Type IV sedation with EXT JS DEVELOPER Estimated Blood Loss Estimated blood loss (mL): scant Specimens/Packing Specimens Removed antral bx body of stomach bx GE jxn bx CHAYO IBRAHIM DO Aug 01, 2020 09:02
--- NOTE | 2020-08-01 09:03 | Endoscopy Discharge Instruct ---
Endo Procedure/Findings Findings 1.: Gastritis Discharge Instructions - Activity: You might feel a little sleepy until tomorrow. This is due to the medicine you received to relax you. Until tomorrow, you should: NOT drive a car, operate machinery or power tools. NOT drink any alcoholic beverages. NOT make any important decisions or sign importortant papers. Do not return to work until tomorrow, unless otherwise instructed. Resume previous activities tomorrow. Diet: Start by taking liquids. If you tolerate liquids, advance to solid food. 1.: EGD in 1 year Notify Physician - If you experience excessive bleeding, unusual abdominal pain, fever, or chest pain, contact your doctor immediately. CHAYO IBRAHIM DO Aug 01, 2020 09:03
--- NOTE | 2020-08-01 10:09 | Anesthesia-General Post-Op ---
MAC Patient Condition Mental Status/LOC: Same as Preop Cardiovascular: Satisfactory Nausea/Vomiting: Absent Respiratory: Satisfactory Pain: Controlled Complications: Absent Post Op Complications Complications None Follow Up Care/Instructions Patient Instructions None needed. Anesthesiology Discharge Order Discharge Order Patient is doing well, no complaints, stable vital signs, no apparent adverse anesthesia problems. No complications reported per nursing. DENZEL BEACH CRNA Aug 01, 2020 10:09
--- NOTE | 2020-08-01 11:34 | OPERATIVE REPORT ---
DATE OF SERVICE: PREOPERATIVE DIAGNOSES: Gastroesophageal reflux disease and reflux. POSTOPERATIVE DIAGNOSIS: Gastritis. PROCEDURE: EGD with biopsy. SURGEON: Mitchel Rice DO STRAIGHT SLICING MACHINE OPERATOR: None. ANESTHESIA: IV sedation by the FRAME NAILER. SPECIMEN: Biopsy from the antrum, biopsy of the body of stomach, biopsy of the GE junction. BLOOD LOSS: Scant. FLUIDS: Per anesthesia. POSTOPERATIVE CONDITION: Stable. INDICATION FOR PROCEDURE: The patient is an 79-year-old female, who has been complaining of GERD and reflux and needed a workup. FINDINGS: The patient had some what looked like bloody flecks in the stomach, but could not see any ulcers or causes for this bleeding. She did have some mild gastritis. PROCEDURE NOTE: After informed consent was obtained, the patient was brought to the endoscopy suite, placed in bed in left lateral decubitus position. She was administered IV sedation by the FRAME NAILER who then monitored her vitals the entire time, heart rate, blood pressure and pulse ox and the scope was placed down the mouth through the esophagus into the stomach. Upon entering the stomach, noted what looked like bloody flecks all around, took a picture of this, pushed into the duodenum. Duodenum looked fine. Pulled back and did a biopsy of the antrum, which looked like there is some gastritis. Retroflexed the scope. The patient did not really have a hiatal hernia, took a biopsy of body of stomach and then pulled the scope into the GE junction, did a biopsy, then pushed the scope back into the stomach, suctioned all the air out and then pulled the scope up the esophagus and out the mouth. The patient tolerated the procedure. She was recovered in endoscopy suite. Job ID: [id number] DocumentID: [id number] Dictated Date: 08/01/2020 09:10:25 Jewel Bearing Grinder Date: 08/01/2020 11:34:04 Dictated By: MITCHEL RICE DO
== END 2020-08-01 09:45 | disposition home or self-care (01) ==
LOC: ENDO 07:56
PROVIDERS: ATTEND Surgery
DX: K29.50 Unspecified chronic gastritis without bleeding (principal); K21.00 Gastro-esophageal reflux disease with esophagitis, without bleeding; I10 Essential (primary) hypertension; I25.10 Atherosclerotic heart disease of native coronary artery without angina pectoris; Z79.899 Other long term (current) drug therapy; Z95.5 Presence of coronary angioplasty implant and graft; Z88.0 Allergy status to penicillin; Z88.8 Allergy status to other drugs, medicaments and biological substances

== ENCOUNTER → 2022-07-05 | Outpatient (CLI) | payer MEDICARE, OTHER ==
[~2022-07-05] MED LIST changes: -ISOS30TA3 PO; +ISOS30TA82 PO; -LACTATED RINGERS 1,000 ML IV STA; -LISI10TA2 PO; +LISI10TA25 PO; -OMEP40CA27 PO; +OMEP40CA6 PO
== END ==
LOC: CARDFS 08:38
PROVIDERS: ATTEND Internal Medicine Cardiovascular Disease
DX: I11.9 Hypertensive heart disease without heart failure (principal)
CPT/HCPCS: 93306

== ENCOUNTER → 2022-08-02 | Outpatient (CLI) | payer MEDICARE, OTHER ==
[~2022-08-02] VITALS: Ht 162 cm; Wt 55.0 kg
[~2022-08-02] MED LIST changes: +CATHETER FLUSH 10 ML SYR IVP PRN; +REGADENOSON 0.4 MG/5 ML SYR (LEXISCAN) IV ONE
[2022-08-02 12:41] VITALS: BP 141/79
--- NOTE | 2022-08-03 10:29 | Cardiology Stress Test Report ---
Stress Test Report Date of Procedure/Referring: Date of Procedure: Aug 03, 2022 PCP Mary Kay Arita MD Admitting Physician Admitting Physician: Attending Physician: Kalani Jacome MD Baseline Heart Rate: 61 Baseline Blood Pressure: Blood Pressure Systolic: 141 Blood Pressure Diastolic: 79 Baseline Vitals Vital Signs Date Time Temp Pulse Resp B/P (MAP) Pulse Ox O2 Delivery O2 Flow Rate FiO2 08/02/22 12:41 61 141/79 (99) Baseline EKG: Baseline EKG: NSR Summary After explaining the procedure to the patient, she signed a consent and then brought to the stress nuclear laboratory. Patient received 0.4 mg Lexiscan for stress test, ECG, heart rate and blood pressure were monitored continuously. Resting and stress dose of radio tracer were injected, imaging was acquired and reviewed in short axis, horizontal long axis and vertical long axis views. TID: 1.07 SSS: 2 SDS: 2 EF: 84 1. Patient tolerated Lexiscan well 2. No significant ischemia or infarction noted on SPECT images 3. Normal left ventricular size, ejection fraction 84% Copy Copies To 1: MARY KAY ARITA MD, BASHAR J MD Aug 03, 2022 10:29
== END ==
LOC: CARD 10:35
PROVIDERS: ATTEND Internal Medicine Cardiovascular Disease
DX: I25.10 Atherosclerotic heart disease of native coronary artery without angina pectoris (principal); I10 Essential (primary) hypertension
CPT/HCPCS: 78452; 93017; A9502

== ENCOUNTER 2022-11-24 14:42 | Emergency (ER) | payer MEDICARE, OTHER ==
[~2022-11-24] VITALS: Ht 162.5 cm; Wt 50.0 kg
[~2022-11-24 14:42] MED LIST changes: -CATHETER FLUSH 10 ML SYR IVP PRN; -REGADENOSON 0.4 MG/5 ML SYR (LEXISCAN) IV ONE
[2022-11-24 14:45] VITALS: BP 90/55
--- NOTE | 2022-11-24 14:57 | ED General ---
General Chief Complaint: Dizziness/Syncope Stated Complaint: SYNCOPAL EPISODE History of Present Illness Date Seen by Provider: Nov 24, 2022 Time Seen by Provider: 14:52 Initial Comments 82-year-old female with PMH of Parkinson's/CAD with stents, and other comorbidities, is brought in by EMS with complaints of near syncope at home. Patient's daughter was with her at home when patient all of a sudden appeared dazed and stating that she does not feel well. Daughter reports that patient is not compliant with her medications every day, and skips doses a lot, and barely drinks any water, and eats only 1-1/2 meals a day. Patient appears lethargic upon initial ER presentation, but looked a lot better after fluids were given. Denies fever and chills, respiratory symptoms, chest pain, palpitations, dizziness, blurry vision, abdominal pain, diarrhea or constipation. Allergies and Home Medications Allergies Coded Allergies: meloxicam (Verified Allergy, Severe, 05/04/20) THROAT SWELLING hydrochlorothiazide (Verified Allergy, Intermediate, 05/04/20) DRY MOUTH AND SWOLLEN TONGUE triamterene (Verified Allergy, Intermediate, 05/04/20) DRY MOUTH AND SWOLLEN TONGUE atorvastatin (Verified Allergy, Mild, 05/04/20) MUSCLE ACHES Penicillins (Verified Allergy, Unknown, CHILDHOOD , 07/27/20) diclofenac (Verified Allergy, Unknown, 05/04/20) Patient Home Medication List Home Medication List Reviewed: Yes Acetaminophen (Acetaminophen) 325 Mg Tablet, 325 MG PO Q4H PRN for PAIN-MILD (1- 4), (Reported) Entered as Reported by: SAMIA DOMINGO on 05/04/20 1337 Aspirin (Aspirin EC) 81 Mg Tablet.dr, 81 MG PO 1500, (Reported) Entered as Reported by: SAMIA DOMINGO on 05/04/20 1337 Ibuprofen (Ibuprofen) 200 Mg Capsule, 200 MG PO Q4H PRN for PAIN-MILD (1-4), (Reported) Entered as Reported by: SAMIA DOMINGO on 05/04/20 1334 Isosorbide Mononitrate (Isosorbide Mononitrate ER) 30 Mg Tab.er.24h, 30 MG PO 1700, (Reported) Entered as Reported by: SAMIA DOMINGO on 05/04/20 1334 Lisinopril (Lisinopril) 10 Mg Tablet, 10 MG PO DAILY, (Reported) Entered as Reported by: SAMIA DOMINGO on 05/04/20 1334 Magnesium Oxide (Magnesium) 400 Mg Tablet, 400 MG PO DAILY PRN for CONSTIPATION, (Reported) Entered as Reported by: SAMIA DOMINGO on 05/04/20 1344 Ondansetron (Ondansetron Odt) 4 Mg Tab.rapdis, 4 MG PO Q6H PRN for NAUSEA/VOMITING-1ST LINE Prescribed by: JONATHAN PURVIS on 07/11/20 1355 Rosuvastatin Calcium (Crestor) 5 Mg Tablet, 5 MG PO DAILY Prescribed by: CARLOS RAMEY on 05/04/20 1507 Review of Systems Review of Systems Constitutional: malaise EENTM: no symptoms reported Respiratory: no symptoms reported Cardiovascular: no symptoms reported Gastrointestinal: no symptoms reported Genitourinary: no symptoms reported Musculoskeletal: no symptoms reported Skin: no symptoms reported Psychiatric/Neurological: Other Hematologic/Lymphatic: No Symptoms Reported Immunological/Allergic: no symptoms reported Past Admlkos-Suhfik-Rxbjtj Hx Patient Social History Tobacco Use?: No Use of E-Cig and/or Vaping dev: No Substance use?: No Alcohol Use?: No Pt feels they are or have been: No Immunizations Up To Date Influenza Vaccine Up-to-Date: Yes; Up-to-Date First/Initial COVID19 Vaccinat: [facility] Second COVID19 Vaccination Luis E: [facility] Third COVID19 Vaccination Date: K COVID19 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: [facility] Seasonal Allergies Seasonal Allergies: Yes Past Medical History Surgeries: Yes (BILAT HIP REPLACED) Appendectomy, Coronary Stent, Gallbladder, Hysterectomy, Joint Replacement, Tonsillectomy Respiratory: No Cardiac: Yes Coronary Artery Disease, Hypertension Neurological: No Concussion Genitourinary: No Gastrointestinal: Yes Gastroesophageal Reflux Musculoskeletal: No Endocrine: No HEENT: Yes (CATARACTS REMOVED) Cataract Loss of Vision: Denies Hearing Impairment: Denies Cancer: No Psychosocial: No Integumentary: No Blood Disorders: No Physical Exam Vital Signs Vital Signs - First Documented 11/24/22 14:42 Temp 36.8 Pulse 65 Resp 14 B/P (MAP) 90/55 (67) Pulse Ox 99 O2 Delivery Room Air Capillary Refill : Height, Weight, BMI Height: '" Weight: lbs. oz. kg; 20.95 BMI Method: General Appearance: No Apparent Distress HEENT: PERRL/EOMI, Normal ENT Inspection, Other (Dry mucous membranes and tenting of skin) Neck: Full Range of Motion, Normal Inspection, Non Tender, Supple Respiratory: Chest Non Tender, Lungs Clear, Normal Breath Sounds Cardiovascular: Regular Rate, Rhythm, No Edema Gastrointestinal: Normal Bowel Sounds, Non Tender, Soft Back: Normal Inspection, No CVA Tenderness Extremity: Normal Range of Motion Neurologic/Psychiatric: Alert, Oriented x3, No Motor/Sensory Deficits, Normal Mood/Affect, office correspondent II-XII Norm as Tested Skin: Normal Color Focused Exam Lactate Level 11/24/22 15:13: Lactic Acid Level 1.42 Lactic Acid Level Laboratory Tests Test 11/24/22 15:13 Lactic Acid Level 1.42 MMOL/L (0.50-2.00) Procedures/Interventions Suture Size: 4-0 Progress/Results/Core Measures Suspected Sepsis SIRS Temperature: Pulse: Respiratory Rate: Laboratory Tests 11/24/22 14:48: White Blood Count 5.7 Blood Pressure / Mean: 11/24/22 15:13: Lactic Acid Level 1.42 Laboratory Tests 11/24/22 14:48: Creatinine 0.95, Platelet Count 164, Total Bilirubin 0.6 Results/Orders Lab Results Laboratory Tests Test 11/24/22 14:48 11/24/22 15:13 11/24/22 16:37 Range/Units White Blood Count 5.7 4.3-11.0 10^3/uL Red Blood Count 3.59 L 3.80-5.11 10^6/uL Hemoglobin 11.8 11.5-16.0 g/dL Hematocrit 35 35-52 % Mean Corpuscular Volume 97 80-99 fL Mean Corpuscular Hemoglobin 33 25-34 pg Mean Corpuscular Hemoglobin Concent 34 32-36 g/dL Red Cell Distribution Width 13.1 10.0-14.5 % Platelet Count 164 130-400 10^3/uL Mean Platelet Volume 9.9 9.0-12.2 fL Immature Granulocyte % (Auto) 0 % Neutrophils (%) (Auto) 71 42-75 % Lymphocytes (%) (Auto) 20 12-44 % Monocytes (%) (Auto) 7 0-12 % Eosinophils (%) (Auto) 1 0-10 % Basophils (%) (Auto) 1 0-10 % Neutrophils # (Auto) 4.1 1.8-7.8 10^3/uL Lymphocytes # (Auto) 1.2 1.0-4.0 10^3/uL Monocytes # (Auto) 0.4 0.0-1.0 10^3/uL Eosinophils # (Auto) 0.1 0.0-0.3 10^3/uL Basophils # (Auto) 0.0 0.0-0.1 10^3/uL Immature Granulocyte # (Auto) 0.0 0.0-0.1 10^3/uL Sodium Level 138 135-145 MMOL/L Potassium Level 3.7 3.6-5.0 MMOL/L Chloride Level 103 98-107 MMOL/L Carbon Dioxide Level 26 21-32 MMOL/L Anion Gap 9 5-14 MMOL/L Blood Urea Nitrogen 18 7-18 MG/DL Creatinine 0.95 0.60-1.30 MG/DL Estimat Glomerular Filtration Rate 59 BUN/Creatinine Ratio 19 Glucose Level 148 H 70-105 MG/DL Calcium Level 9.1 8.5-10.1 MG/DL Corrected Calcium 9.4 8.5-10.1 MG/DL Magnesium Level 2.1 1.6-2.4 MG/DL Total Bilirubin 0.6 0.1-1.0 MG/DL Aspartate Amino Transf (AST/SGOT) 17 5-34 U/L Alanine Aminotransferase (ALT/SGPT) 6 0-55 U/L Alkaline Phosphatase 52 40-136 U/L Troponin I < 0.30 <0.30 NG/ML Pro-B-Type Natriuretic Peptide 589.5 H <450.0 PG/ML Total Protein 6.0 L 6.4-8.2 GM/DL Albumin 3.6 3.2-4.5 GM/DL Lactic Acid Level 1.42 0.50-2.00 MMOL/L Urine Color YELLOW Urine Clarity CLOUDY Urine pH 6.0 5-9 Urine Specific Alsey 1.020 1.016-1.022 Urine Protein TRACE H NEGATIVE Urine Glucose (UA) NEGATIVE NEGATIVE Urine Ketones 1+ H NEGATIVE Urine Nitrite NEGATIVE NEGATIVE Urine Bilirubin 1+ H NEGATIVE Urine Urobilinogen 4.0 < = 1.0 MG/DL Urine Leukocyte Esterase 2+ H NEGATIVE Urine RBC (Auto) NEGATIVE NEGATIVE Urine RBC NONE /HPF Urine WBC 50-100 H /HPF Urine Squamous Epithelial Cells 5-10 /HPF Urine Crystals NONE /LPF Urine Bacteria LARGE H /HPF Urine Casts PRESENT /LPF Urine Hyaline Casts 2-5 H /LPF Urine Mucus LARGE H /LPF Urine Culture Indicated YES My Orders Orders - OLEKSANDR BRAGA MD Continuous Ekg Monitoring (11/24/22 14:58) Ekg Tracing (11/24/22 14:58) Cbc With Automated Diff (11/24/22 14:58) Comprehensive Metabolic Panel (11/24/22 14:58) Lactic Acid Analyzer (11/24/22 14:58) Magnesium (11/24/22 14:58) Ua Culture If Indicated (11/24/22 14:58) Probnp Fs (11/24/22 14:58) Troponin I Fs (11/24/22 14:58) Chest 1 View Ap/Pa Only (11/24/22 14:59) Ct Head Wo (11/24/22 14:59) Ed Iv/Invasive Line Start (11/24/22 15:57) Ns Iv 1000 Ml (Sodium Chloride 0.9%) (11/24/22 16:00) Straight Cath (Urinary) (11/24/22 16:37) Urine Culture (11/24/22 16:37) Ceftriaxone 1 Gm Pre-Mix (Rocephin 1 Gm (11/24/22 16:45) Vital Signs/I&O 11/24/22 11/24/22 14:42 14:45 Temp 36.8 36.8 Pulse 65 65 Resp 14 14 B/P (MAP) 90/55 (67) 90/55 Pulse Ox 99 99 O2 Delivery Room Air Room Air Capillary Refill : Progress Note : Progress Note 1. SYNCOPE DUE TO ACUTE CYSTITIS & DEHYDRATION: - CT HEAD: no acute findings - CXR: no acute findings - EKG/ Troponin: undetected, non-ischemic - CBC/ CMP: unremarkable - UA: Positive for leukocyte esterase, ketones, WBCs, and bacteria - NS IVF bolus. Patient felt much better and looked much improved after receiving fluids -Ceftriaxone 1 g IV stat in ER -Prescription given for cefpodoxime twice daily for 7 days -Advised patient to drink at least 8 glasses of water a day, and improve her nutrition. -Advised to follow-up with PCP in the next 5 to 7 days -The patient was seen in the ED, and treated appropriately to presentation at a specific point in time. Patient is informed that there is a possibility that disease and illness can evolve and change in acuity rapidly or slowly after patient is discharged from the ER. Precautionary advice given to the patient for immediate return to ER if symptoms worsen or do not resolve, and to seek emergency care sooner rather than later. Pt also advised on the importance of PCP follow up and compliance with management and follow up plan with PCP and/or specialist, as this is part of the management plan. Pt verbally expressed understanding. ECG EKG : EKG Time: 14:45 Rate: 62 Rhythm: Normal Sinus Intervals: Normal Diagnostic Imaging Diagonstic Imaging: Xray, CT Plain Films/CT/US/NM/MRI: chest, head Comments [facility] [place] [place] NAME: ANNA MCMAHON [employer] REC#: [id number] PT STATUS: REG ER : 1940 PHYSICIAN: OLEKSANDR BRAGA MD ADMIT DATE: 11/24/22/ER FS Draft Date of Exam:11/24/22 CT HEAD WO PROCEDURE: CT head without contrast. TECHNIQUE: Multiple contiguous axial images were obtained through the brain without the use of intravenous contrast. Auto Exposure Controls were utilized during the CT exam to meet ALARA standards for radiation dose reduction. INDICATION: Syncopal episode. TIME OF EXAM: 3:35 PM. COMPARISON: No prior study is available for comparison. FINDINGS: Ventricles and sulci are within normal limits. There is no sulcal effacement or midline shift. There is moderate periventricular low attenuation consistent with chronic microvascular ischemia. No acute intra-axial or extra-axial hemorrhage is detected. Cisterns are patent. Visualized paranasal sinuses are clear. IMPRESSION: Chronic changes. No acute intracranial process is detected. Dictated on workstation # [id number] Dict: 11/24/22 1528 Trans: 11/24/22 1537 [facility] [id number] Interpreted by: MARITO KAHN MD Electronically signed by: [facility] [place] [place] NAME: ANNA MCMAHON [employer] REC#: [id number] PT STATUS: REG ER : 1940 PHYSICIAN: OLEKSANDR BRAGA MD ADMIT DATE: 11/24/22/ER FS Signed Date of Exam:11/24/22 CHEST 1 VIEW AP/PA ONLY INDICATION: Syncopal episode. TIME OF EXAM: 3:23 PM. COMPARISON: Prior chest of 07/11/2020. FINDINGS: The heart size is normal. The pulmonary vascularity is unremarkable. The lungs are clear. No infiltrate, effusion or pneumothorax is detected. IMPRESSION: No acute cardiopulmonary process is detected. Dictated by: Dictated on workstation # [id number] Dict: 11/24/22 1530 Trans: 11/24/22 153 [facility] [id number] Interpreted by: MARITO KAHN MD Electronically signed by: MARITO KAHN MD 11/24/221532 Departure Impression Primary Impression: Acute cystitis without hematuria Additional Impression: Dehydration Disposition: HOME, SELF-CARE Condition: Improved Departure-Patient Inst. Referrals: MARY KAY QUINTANA MD (PCP/Family) Primary Care Physician Patient Instructions: Acute Cystitis (DC), Dehydration, Adult ED, Urinary Tract Infection, Adult (DC), Why Water Is Important to Health Add. Discharge Instructions: -Prescription given for cefpodoxime twice daily for 7 days. Start taking oral antibiotic tomorrow since the iv antibiotic given in the ER will cover for the next 24 hours. -Advised patient to drink at least 8 glasses of water a day, and improve her nutrition. -Advised to follow-up with PCP in the next 5 to 7 days All discharge instructions reviewed with patient and/or family. Voiced understanding. OLEKSANDR BRAGA MD Nov 24, 2022 14:57
[2022-11-24 15:01] LABS: BASOPHILS % (AUTO) 1 % (0-10); EOSINOPHILS # (AUTO) 0.1 10^3/uL (0.0-0.3); EOSINOPHILS % (AUTO) 1 % (0-10); HEMATOCRIT 35 % (35-52); HEMOGLOBIN 11.8 g/dL (11.5-16.0); LYMPHOCYTES # (AUTO) 1.2 10^3/uL (1.0-4.0); LYMPHOCYTES % (AUTO) 20 % (12-44); MEAN CORPUSCULAR HEMOGLOBIN 33 pg (25-34); MEAN CORPUSCULAR HGB CONC 34 g/dL (32-36); MEAN CORPUSCULAR VOLUME 97 fL (80-99); MEAN PLATELET VOLUME 9.9 fL (9.0-12.2); MONOCYTES # (AUTO) 0.4 10^3/uL (0.0-1.0); MONOCYTES % (AUTO) 7 % (0-12); NEUTROPHILS # (AUTO) 4.1 10^3/uL (1.8-7.8); NEUTROPHILS % (AUTO) 71 % (42-75); PLATELET COUNT 164 10^3/uL (130-400); WHITE BLOOD COUNT 5.7 10^3/uL (4.3-11.0)
[2022-11-24 15:12] LABS: ALANINE AMINOTRANSFERASE 6 U/L (0-55); ALBUMIN 3.6 GM/DL (3.2-4.5); ALKALINE PHOSPHATASE 52 U/L (40-136); BILIRUBIN,TOTAL 0.6 MG/DL (0.1-1.0); BUN/CREATININE RATIO 19; CALCIUM 9.1 MG/DL (8.5-10.1); CARBON DIOXIDE 26 MMOL/L (21-32); CHLORIDE 103 MMOL/L (98-107); CREATININE SERUM 0.95 MG/DL (0.60-1.30); GFR ESTIMATED 59; GLUCOSE 148 MG/DL (70-105); MAGNESIUM 2.1 MG/DL (1.6-2.4); POTASSIUM 3.7 MMOL/L (3.6-5.0); SODIUM 138 MMOL/L (135-145)
--- NOTE | 2022-11-24 15:33 | Diagnostic Imaging Report ---
INDICATION: Syncopal episode. TIME OF EXAM: 3:23 PM. COMPARISON: Prior chest of 07/11/2020. FINDINGS: The heart size is normal. The pulmonary vascularity is unremarkable. The lungs are clear. No infiltrate, effusion or pneumothorax is detected. IMPRESSION: No acute cardiopulmonary process is detected. Dictated by: Dictated on workstation # [id number]
--- NOTE | 2022-11-24 15:37 | Diagnostic Imaging Report ---
PROCEDURE: CT head without contrast. TECHNIQUE: Multiple contiguous axial images were obtained through the brain without the use of intravenous contrast. Auto Exposure Controls were utilized during the CT exam to meet ALARA standards for radiation dose reduction. INDICATION: Syncopal episode. TIME OF EXAM: 3:35 PM. COMPARISON: No prior study is available for comparison. FINDINGS: Ventricles and sulci are within normal limits. There is no sulcal effacement or midline shift. There is moderate periventricular low attenuation consistent with chronic microvascular ischemia. No acute intra-axial or extra-axial hemorrhage is detected. Cisterns are patent. Visualized paranasal sinuses are clear. IMPRESSION: Chronic changes. No acute intracranial process is detected. Dictated by: Dictated on workstation # [id number]
[2022-11-24] MEDS: NS IV 1000 ML 1,000 ML IV SCH ×2 (16:01→16:02)
[2022-11-24 16:38] LABS: COLOR,URINE YELLOW; GLUCOSE, URINE (UA) NEGATIVE (NEGATIVE); KETONES,URINE 1+ (NEGATIVE); LEUKOCYTE ESTERASE ,URINE 2+ (NEGATIVE); NITRITE,URINE NEGATIVE (NEGATIVE); PROTEIN,URINE TRACE (NEGATIVE)
[2022-11-24 16:43] LABS: BACTERIA,URINE LARGE /HPF; BILIRUBIN,URINE 1+ (NEGATIVE); CLARITY,URINE CLOUDY; WBC,URINE 50-100 /HPF
[2022-11-24] MEDS ORDERED: cefTRIAXone 1 GM PRE-MIX 50 ML IV STA (16:45)
[2022-11-24] MEDS ORDERED: CEFP100T2 PO (16:59)
== END 2022-11-24 17:46 | disposition home or self-care (01) ==
LOC: EDUNIT# 14:42 → ER FS 14:44
DX: N30.90 Cystitis, unspecified without hematuria (principal); E86.0 Dehydration; Z88.0 Allergy status to penicillin
CPT/HCPCS: 36415; 51702; 70450; 71045; 80053; 81000; 83605; 83735; 83880; 84484; 85025; 87077; 87088; 93005

== ENCOUNTER 2022-11-28 16:14 | Inpatient (IN) | payer MEDICARE, OTHER ==
[~2022-11-28] VITALS: Ht 160 cm; Wt 54.0 kg
[~2022-11-28 16:14] MED LIST changes: +CEFP100T2 PO
[2022-11-28] MEDS ORDERED: NS IV 500 ML 500 ML IV ONE (16:30)
--- NOTE | 2022-11-28 16:51 | Diagnostic Imaging Report ---
INDICATION: Syncope. TECHNIQUE: Single view chest 4:42 PM. CORRELATION STUDY: 11/04/2022 FINDINGS: The heart size, mediastinal configuration and pulmonary vascularity are within normal limits. Opacity the right superior para mediastinal region perhaps ectatic vessels. The lungs are hyperinflated but are clear with no consolidating infiltrate. There is no significant effusion or pneumothorax. IMPRESSION: 1. Negative appearing single view chest. Dictated by: Dictated on workstation # [id number]
[2022-11-28 17:07] LABS: BASOPHILS % (AUTO) 0 % (0-10); EOSINOPHILS % (AUTO) 1 % (0-10); LYMPHOCYTES % (AUTO) 16 % (12-44); MONOCYTES % (AUTO) 6 % (0-12); NEUTROPHILS % (AUTO) 76 % (42-75)
[2022-11-28 17:08] LABS: EOSINOPHILS # (AUTO) 0.1 10^3/uL (0.0-0.3); MONOCYTES # (AUTO) 0.4 X 10^3 (0.0-1.0)
[2022-11-28 17:10] LABS: ABG BASE EXCESS 4.7 MMOL/L (-2.5-2.5); ABG OXYGEN SATURATION 100 % (94-100); ABG PCO2 37 MMHG (35-45); ABG PH 7.49 (7.37-7.43); ABG PO2 298 MMHG (79-93); ABG TCO2 29.3 MMOL/L (21.0-31.0)
[2022-11-28 17:11] LABS: INSPIRED O2 6 L MASK; VENTILATOR NO
[2022-11-28 17:13] LABS: PATIENT TEMP 35.8
--- NOTE | 2022-11-28 17:18 | ED Syncope ---
General Chief Complaint: General Problems/Pain Stated Complaint: UNRESPONSIVE Nursing Triage Note: Patient has been brougt to ER by EMS. Per EMS patient was founding sitting in her wheel chair not breathing and no palpabale pulse - EMS applied a alarm security or surveillance monitor and she had a dimitris cardiac rythm. After applying the monitor she had a slight breath and EMS started to feel a faint pulse. During transport to ER patient pulse became stronger and she had spontaneous respirations. EMS alert upon arrival to the ER. Source of Information: Patient, EMS, Family, Old Records Exam Limitations: Other (Decreased alertness) History of Present Illness Date Seen by Provider: Nov 28, 2022 Time Seen by Provider: 16:16 Initial Comments This 82-year-old woman presents to the emergency room via EMS after having an unresponsive episode at her home. She was found slumped over in a wheelchair by her son-in-law after being home for a few hours by herself. She reportedly was not breathing. Emergency services were activated. Police were first on the scene and reported no breathing and no pulse. They determined the patient to be . Family had requested no CPR at that time given she had been down for at least several minutes without interventions. EMS crew then arrived and evaluated the patient to confirm that was reported by police. EMS crew applied the alarm security or surveillance monitor and found a scant bradycardia with no palpable pulse. This was determined to be PEA. Patient then suddenly began to breathe and a bradycardic palpable pulse was felt. Patient was taken to the ambulance where she was found to have a normal blood pressure and a bradycardic rhythm in the 40s with pulse. She gradually improved responsiveness in route. On arrival to the ER she was alert and answering some questions but confused. Oxygen saturation was difficult to measure but was found to be in the 90s once a good reading was obtained. She was initially on a nonrebreather and then placed on low flow nasal cannula. Vital signs remained stable. She was in no respiratory distress. Patient had another unresponsive episode on November 24 and was evaluated in this ER. Work-up was relatively unremarkable except for urinary tract infection. She was treated with IV antibiotics in the ER and prescribed oral antibiotics which she has been taking. Patient does have significant Parkinson's disease and walks with a walker. She has been using a wheelchair more recently. She has had multiple falls between the ER visits due to deficits from Parkinson's disease and episodes of lightheadedness. She did strike her face during one of the falls. She denies having any significant pain from injuries. She has slight tenderness to the bruise on her right cheek. Patient denies any chest pain or palpitations. She has had some episodes of lightheadedness and mild shortness of breath between the ER visits. She has history of coronary artery disease with stenting. She has had heart cath and stress test within the last [address] Jacome. Her primary care provider is Dr. Quintana. Patient also reports a 50 pound weight loss in the last year without intention or explanation. 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 She identifies 3 family members as medical power of blueprint clerk and primary contact. The first 2 contact is her daughter Kourtney Orellana at [phone]. She is not always available by phone because she is required to be on phone calls at work. Her work number is [phone]. The next alternate is patient's sister Quita at [phone]. Third DPOA and contact is Phani Orellana (Kourtney's ) [phone]. Allergies and Home Medications Allergies Coded Allergies: meloxicam (Verified Allergy, Severe, 05/04/20) THROAT SWELLING hydrochlorothiazide (Verified Allergy, Intermediate, 05/04/20) DRY MOUTH AND SWOLLEN TONGUE triamterene (Verified Allergy, Intermediate, 05/04/20) DRY MOUTH AND SWOLLEN TONGUE atorvastatin (Verified Allergy, Mild, 05/04/20) MUSCLE ACHES Penicillins (Verified Allergy, Unknown, CHILDHOOD , 07/27/20) diclofenac (Verified Allergy, Unknown, 05/04/20) Patient Home Medication List Home Medication List Reviewed: Yes Acetaminophen (Acetaminophen) 325 Mg Tablet, 325 MG PO Q4H PRN for PAIN-MILD (1- 4), (Reported) Entered as Reported by: SAMIA DOMINGO on 05/04/20 1337 Aspirin (Aspirin EC) 81 Mg Tablet.dr, 81 MG PO 1500, (Reported) Entered as Reported by: SAMIA DOMINGO on 05/04/20 1337 Cefpodoxime Proxetil (Cefpodoxime Proxetil) 100 Mg Tablet, 100 MG PO BID Prescribed by: OLEKSANDR BRAGA MD on 11/24/22 1659 Ibuprofen (Ibuprofen) 200 Mg Capsule, 200 MG PO Q4H PRN for PAIN-MILD (1-4), (Reported) Entered as Reported by: SAMIA DOMINGO on 05/04/20 1334 Isosorbide Mononitrate (Isosorbide Mononitrate ER) 30 Mg Tab.er.24h, 30 MG PO 1700, (Reported) Entered as Reported by: SAMIA DOMINGO on 05/04/20 1334 Lisinopril (Lisinopril) 10 Mg Tablet, 10 MG PO DAILY, (Reported) Entered as Reported by: SAMIA DOMINGO on 05/04/20 1334 Magnesium Oxide (Magnesium) 400 Mg Tablet, 400 MG PO DAILY PRN for CONSTIPATION, (Reported) Entered as Reported by: SAMIA DOMINGO on 05/04/20 1344 Ondansetron (Ondansetron Odt) 4 Mg Tab.rapdis, 4 MG PO Q6H PRN for NAUSEA/VOMITING-1ST LINE Prescribed by: JONATHAN PURVIS on 07/11/20 1355 Rosuvastatin Calcium (Crestor) 5 Mg Tablet, 5 MG PO DAILY Prescribed by: CARLOS JACOME on 05/04/20 1507 Review of Systems Constitutional: see HPI EENTM: see HPI Respiratory: see HPI Cardiovascular: see HPI Gastrointestinal: no symptoms reported Genitourinary: no symptoms reported : No Musculoskeletal: no symptoms reported Skin: see HPI Psychiatric/Neurological: See HPI Past Gjnfhiy-Zbkrlf-Chpcox Hx Patient Social History Tobacco Use?: No Use of E-Cig and/or Vaping dev: No Substance use?: No Alcohol Use?: No Immunizations Up To Date First/Initial COVID19 Vaccinat: UNK Second COVID19 Vaccination Luis E: UNK Third COVID19 Vaccination Date: UNK Seasonal Allergies Seasonal Allergies: Yes Past Medical History Surgeries: Yes (BILAT HIP REPLACED) Appendectomy, Coronary Stent, Gallbladder, Hysterectomy, Joint Replacement (Left hip), Tonsillectomy Respiratory: No Cardiac: Yes Coronary Artery Disease, Hypertension, Syncope (Syncopal or unresponsive episodes) Neurological: Yes Concussion, Parkinson's Disease Genitourinary: No Gastrointestinal: Yes Gastroesophageal Reflux Musculoskeletal: No Endocrine: No HEENT: Yes (CATARACTS REMOVED) Cataract Loss of Vision: Denies Hearing Impairment: Denies Cancer: No Psychosocial: No Integumentary: No Blood Disorders: No Physical Exam Vital Signs Vital Signs - First Documented 11/28/22 11/28/22 16:36 16:55 Temp 35.8 Pulse 56 Resp 18 B/P (MAP) 134/58 (83) Pulse Ox 100 O2 Delivery Non Rebreather O2 Flow Rate 10.00 FiO2 100 Capillary Refill : Height, Weight, BMI Height: '" Weight: lbs. oz. kg; BMI Method: General Appearance: No Apparent Distress, WD/WN, Thin, Other (Pale) HEENT: PERRL/EOMI, Normal ENT Inspection, Pharynx Normal, Other (Bruise on the right cheek) Neck: Normal Inspection Cardiovascular: Regular Rate, Rhythm, No Murmur; No JVD; Other (Mild to moderate lower extremity edema) Respiratory: Lungs Clear, Normal Breath Sounds, No Accessory Muscle Use, No Respiratory Distress Gastrointestinal: Non Tender, Soft; No Distended Extremities: Non Tender, Pedal Edema, Swelling Neurologic/Psychiatric: Alert, No Motor/Sensory Deficits, Normal Mood/Affect, Other (Initially disoriented with cloudy cognition. This resolved to alert, oriented, and conversational during the course of her ER stay.) Cranial Nerves: Normal Hearing, Normal Speech, PERRL Skin: Normal Color, Warm/Dry Focused Exam Lactate Level 11/28/22 16:45: Lactic Acid Level 0.74 Lactic Acid Level Laboratory Tests Test 11/28/22 16:45 Lactic Acid Level 0.74 MMOL/L (0.50-2.00) Procedures/Interventions Suture Size: 4-0 Progress/Results/Core Measures Results/Orders Lab Results Laboratory Tests Test 11/28/22 16:35 11/28/22 16:45 11/28/22 17:05 11/28/22 18:00 Range/Units Blood Gas Puncture Site RT BRACHIAL Blood Gas Patient Temperature 35.8 Arterial Blood pH 7.49 H 7.37-7.43 Arterial Blood Partial Pressure CO2 37 35-45 MMHG Arterial Blood Partial Pressure O2 298 H 79-93 MMHG Arterial Blood HCO3 28 H 23-27 MMOL/L Arterial Blood Total CO2 29.3 21.0-31.0 MMOL/L Arterial Blood Oxygen Saturation 100 94-100 % Arterial Blood Base Excess 4.7 H -2.5-2.5 MMOL/L Alonzo Test NA Blood Gas Ventilator Setting NO Blood Gas Inspired Oxygen 6 L MASK White Blood Count 6.2 4.3-11.0 10^3/uL Red Blood Count 2.92 L 3.80-5.11 10^6/uL Hemoglobin 9.7 L 11.5-16.0 g/dL Hematocrit 29 L 35-52 % Mean Corpuscular Volume 100 H 80-99 fL Mean Corpuscular Hemoglobin 33 25-34 pg Mean Corpuscular Hemoglobin Concent 33 32-36 g/dL Red Cell Distribution Width 13.5 10.0-14.5 % Platelet Count 140 130-400 10^3/uL Mean Platelet Volume 10.3 9.0-12.2 fL Immature Granulocyte % (Auto) 1 % Neutrophils (%) (Auto) 76 H 42-75 % Lymphocytes (%) (Auto) 16 12-44 % Monocytes (%) (Auto) 6 0-12 % Eosinophils (%) (Auto) 1 0-10 % Basophils (%) (Auto) 0 0-10 % Neutrophils # (Auto) 4.7 1.8-7.8 X 10^3 Lymphocytes # (Auto) 1.0 1.0-4.0 X 10^3 Monocytes # (Auto) 0.4 0.0-1.0 X 10^3 Eosinophils # (Auto) 0.1 0.0-0.3 10^3/uL Basophils # (Auto) 0.0 0.0-0.1 10^3/uL Immature Granulocyte # (Auto) 0.1 0.0-0.1 10^3/uL Percent Immature Platelet Fraction 3.0 0.0-7.6 % Sodium Level 134 L 135-145 MMOL/L Potassium Level 4.4 3.6-5.0 MMOL/L Chloride Level 102 98-107 MMOL/L Carbon Dioxide Level 21 21-32 MMOL/L Anion Gap 11 5-14 MMOL/L Blood Urea Nitrogen 10 7-18 MG/DL Creatinine 0.66 0.60-1.30 MG/DL Estimat Glomerular Filtration Rate 87 BUN/Creatinine Ratio 15 Glucose Level 110 H 70-105 MG/DL Lactic Acid Level 0.74 0.50-2.00 MMOL/L Calcium Level 8.8 8.5-10.1 MG/DL Corrected Calcium 9.2 8.5-10.1 MG/DL Magnesium Level 2.0 1.6-2.4 MG/DL Total Bilirubin 0.5 0.1-1.0 MG/DL Aspartate Amino Transf (AST/SGOT) 19 5-34 U/L Alanine Aminotransferase (ALT/SGPT) < 5 0-55 U/L Alkaline Phosphatase 53 40-136 U/L Myoglobin 82.0 H <58.0 NG/ML Troponin I < 0.30 <0.30 NG/ML Pro-B-Type Natriuretic Peptide 413.3 <450.0 PG/ML Total Protein 5.7 L 6.4-8.2 GM/DL Albumin 3.5 3.2-4.5 GM/DL Serum Alcohol < 10 <10 MG/DL Prothrombin Time 13.3 12.2-14.7 SEC INR Comment 1.0 0.8-1.4 Activated Partial Thromboplast Time 25 24-35 SEC Urine Color YELLOW Urine Clarity CLEAR Urine pH 6.5 5-9 Urine Specific [place] 1.015 L 1.016-1.022 Urine Protein NEGATIVE NEGATIVE Urine Glucose (UA) NEGATIVE NEGATIVE Urine Ketones TRACE H NEGATIVE Urine Nitrite NEGATIVE NEGATIVE Urine Bilirubin NEGATIVE NEGATIVE Urine Urobilinogen 1.0 < = 1.0 MG/DL Urine Leukocyte Esterase NEGATIVE NEGATIVE Urine RBC (Auto) NEGATIVE NEGATIVE Urine RBC NONE /HPF Urine WBC 0-2 /HPF Urine Squamous Epithelial Cells RARE /HPF Urine Crystals NONE /LPF Urine Bacteria NEGATIVE /HPF Urine Casts NONE /LPF Urine Mucus SMALL H /LPF Urine Culture Indicated NO Urine Opiates Screen NEGATIVE NEGATIVE Urine Oxycodone Screen NEGATIVE NEGATIVE Urine Methadone Screen NEGATIVE NEGATIVE Urine Propoxyphene Screen NEGATIVE NEGATIVE Urine Barbiturates Screen NEGATIVE NEGATIVE Ur Tricyclic Antidepressants Screen NEGATIVE NEGATIVE Urine Phencyclidine Screen NEGATIVE NEGATIVE Urine Amphetamines Screen NEGATIVE NEGATIVE Urine Methamphetamines Screen NEGATIVE NEGATIVE Urine Benzodiazepines Screen NEGATIVE NEGATIVE Urine Cocaine Screen NEGATIVE NEGATIVE Urine Cannabinoids Screen NEGATIVE NEGATIVE My Orders Orders - SAEID JIMENEZ MD Cbc With Automated Diff (11/28/22 16:26) Magnesium (11/28/22 16:26) Chest 1 View Ap/Pa Only (11/28/22 16:26) Ekg Tracing (11/28/22 16:26) Comprehensive Metabolic Panel (11/28/22 16:26) Myoglobin Serum (11/28/22 16:26) Protime With Inr (11/28/22 16:26) Partial Thromboplastin Time (11/28/22 16:26) O2 (11/28/22 16:26) Monitor-Rhythm Ecg Trace Only (11/28/22 16:26) Lipid Panel (11/29/22 06:00) Ed Iv/Invasive Line Start (11/28/22 16:26) Troponin I Fs (11/28/22 16:26) Probnp Fs (11/28/22 16:26) Blood Culture (11/28/22 16:26) Sputum Culture (11/28/22 16:26) Urinalysis (11/28/22 16:26) Urine Culture (11/28/22 16:26) Vital Signs Adult Sepsis Patie Q15M (11/28/22 16:26) Remove Rings In Anticipation O (11/28/22 16:26) Lactic Acid Analyzer (11/28/22 16:26) Ns Iv 500 Ml (Sodium Chloride 0.9%) (11/28/22 16:30) Henry Cath (11/28/22 16:34) Arterial Blood Gas (11/28/22 16:48) Alcohol (11/28/22 16:48) Drug Screen Stat (Urine) (11/28/22 16:48) Ct Head/Cervical Spine Wo (11/28/22 17:34) Code/Resuscitation (11/28/22 19:59) Medications Given in ED Current Medications Medications Dose Ordered Sig/Rigoberto Route Start Time Stop Time Status Last Admin Dose Admin Sodium Chloride 500 ml @ 0 mls/hr Q0M ONCE IV 11/28/22 16:30 11/28/22 16:32 DC 11/28/22 16:49 1,000 MLS/HR Vital Signs/I&O 11/28/22 11/28/22 11/28/22 11/28/22 16:36 16:55 19:00 19:30 Temp 35.8 Pulse 56 56 62 Resp 18 14 16 B/P (MAP) 134/58 (83) 131/61 (84) 139/65 (89) Pulse Ox 100 100 100 O2 Delivery Non Rebreather Nasal Cannula Nasal Cannula O2 Flow Rate 10.00 2.00 2.00 FiO2 100 11/28/22 19:51 Pulse 62 Resp 16 B/P (MAP) 120/55 Pulse Ox 99 O2 Delivery Room Air O2 Flow Rate 2.00 Blood Pressure Mean: 83 Progress Progress Note : Progress Note Patient was interviewed and examined upon arrival. Chart from prior ER visit and prior cardiac studies was reviewed. She was alert and able to answer questions at that time but was confused. Vital signs were stable. Pulse oximetry was difficult to obtain but was normal once a reading was established. She experienced no notable cardiac events including arrhythmias or bradycardia during her ER stay. Labs were evaluated including ABG, CBC, CMP, BNP, troponin, lactic acid, magnesium, myoglobin, and urinalysis. These labs were reviewed in their entirety. Although the field history was suspicious for cardiac arrest, labs did not support history of cardiac arrest as lactic acid, troponin, and ABG were relatively normal. After a prolonged cardiac arrest and elevation in lactic acid and troponin as well as a drop in pH would be expected. None of these findings were present. The urinary tract infection previously diagnosed appears to have cleared with antibiotic therapy. Patient received a normal saline 500 mL bolus. No other treatments were administered. I had a lengthy conversation regarding CODE STATUS with patient and her family including her DPOA daughter and sister. Patient selects a DNR status as her baseline function is declining with advancing Parkinson's disease. During assessment of labs, it was noted that she had a 2 g drop in hemoglobin from her prior ER visit. Case was discussed with Dr. Brumfield, admitting hospitalist, who accepted admission. Case was also discussed with Dr. Driscoll who is on-call for Dr. Jacome for cardiology. He recommended continuing aspirin but had no other specific recommendations at this time. Initial ECG Impression Date: Nov 28, 2022 Initial ECG Impression Time: 16:25 Initial ECG Rate: 51 Initial ECG Rhythm: S.Dimitris Comment Mild sinus bradycardia with no diagnostic ST elevation or depression. No abnormal intervals or axis deviation. There are subtle ST changes in the inferior and lateral leads similar to prior. Diagnostic Imaging Diagonstic Imaging: Xray Plain Films/CT/US/NM/MRI: chest Comments Chest x-ray viewed by me. No acute abnormalities were appreciated by my interpretation. Radiologist's interpretation also reviewed as noted in report below: NAME: ANNA MCMAHON [facility] REC#: [id number] PT STATUS: REG ER : 1940 PHYSICIAN: ASEID JIMENEZ MD ADMIT DATE: 11/28/22/ER FS Draft Date of Exam:11/28/22 CHEST 1 VIEW AP/PA ONLY INDICATION: Syncope. TECHNIQUE: Single view chest 4:42 PM. CORRELATION STUDY: 11/04/2022 FINDINGS: The heart size, mediastinal configuration and pulmonary vascularity are within normal limits. Opacity the right superior para mediastinal region perhaps ectatic vessels. The lungs are hyperinflated but are clear with no consolidating infiltrate. There is no significant effusion or pneumothorax. IMPRESSION: 1. Negative appearing single view chest. Dictated on workstation # [id number] Dict: 11/28/22 1650 Trans: 11/28/22 1651 DO [id number] Interpreted by: SARAI HERNANDEZ DO Departure Communication (Admissions) Time/Spoke to Admitting Phy: 18:50 Dr. Brumfield Time/Spoke to Consulting Phy: 18:55 Dr. Driscoll Impression Primary Impression: Syncope Qualified Codes: R55 - Syncope and collapse Additional Impressions: Recurrent episodes of unresponsiveness Parkinsons disease Anemia Qualified Codes: D64.9 - Anemia, unspecified Frequent falls Minor head injury Qualified Codes: S09.90XA - Unspecified injury of head, initial encounter Disposition: 30 STILL A PATIENT Condition: Improved Admissions Decision to Admit Reason: Admit from ER (General) Decision to Admit/Date: Nov 28, 2022 Time/Decision to Admit Time: 18:50 Transfer Transfer Reason: Exceeds level of care (Needs admission) Time Spoke to Accepting Phy: 18:50 Transfer Time: 19:51 Transfer Facility: [facility] Method of Transfer: EMS Departure-Patient Inst. Referrals: MARY KAY QUINTANA MD (PCP/Family) Primary Care Physician Copy Copies To 1: MARY KAY QUINTANA MD Copies To 2: CARLOS JACOME MD, JOSHUA T MD Nov 28, 2022 17:18
[2022-11-28 17:21] LABS: CARBON DIOXIDE 21 MMOL/L (21-32); CHLORIDE 102 MMOL/L (98-107); POTASSIUM 4.4 MMOL/L (3.6-5.0); SODIUM 134 MMOL/L (135-145)
[2022-11-28 17:22] LABS: ALANINE AMINOTRANSFERASE < 5 U/L (0-55); ALBUMIN 3.5 GM/DL (3.2-4.5); ALKALINE PHOSPHATASE 53 U/L (40-136); BILIRUBIN,TOTAL 0.5 MG/DL (0.1-1.0); BUN/CREATININE RATIO 15; CALCIUM 8.8 MG/DL (8.5-10.1); CREATININE SERUM 0.66 MG/DL (0.60-1.30); GFR ESTIMATED 87; GLUCOSE 110 MG/DL (70-105); TOTAL PROTEIN 5.7 GM/DL (6.4-8.2)
[2022-11-28 17:24] LABS: WHITE BLOOD COUNT 6.2 10^3/uL (4.3-11.0)
[2022-11-28 17:25] LABS: HEMATOCRIT 29 % (35-52); HEMOGLOBIN 9.7 g/dL (11.5-16.0); MEAN CORPUSCULAR HEMOGLOBIN 33 pg (25-34)
[2022-11-28 17:26] LABS: MEAN CORPUSCULAR HGB CONC 33 g/dL (32-36); MEAN CORPUSCULAR VOLUME 100 fL (80-99); PLATELET COUNT 140 10^3/uL (130-400)
[2022-11-28 17:27] LABS: MEAN PLATELET VOLUME 10.3 fL (9.0-12.2); NEUTROPHILS # (AUTO) 4.7 X 10^3 (1.8-7.8)
[2022-11-28 17:29] LABS: PROTHROMBIN TIME PATIENT 13.3 SEC (12.2-14.7)
--- NOTE | 2022-11-28 18:03 | Diagnostic Imaging Report ---
EXAMINATION: CT head and CT cervical spine without contrast. TECHNIQUE: Multiple contiguous axial images were obtained through the brain and cervical spine without the use of intravenous contrast. Sagittal and coronal reformations through the cervical spine were then performed. All CT scans use one or more of the following dose optimizing techniques: automated exposure control, MA and/or KvP adjustment based on patient size and exam type or iterative reconstruction. HISTORY: Syncope, Fall, Head injury COMPARISON: 11/24/2022. FINDINGS: HEAD: Mild diffuse cerebral volume loss with proportional enlargement of the ventricles and sulci. Mild hypodensities throughout the supratentorial white matter of both cerebral hemispheres. No acute intracranial hemorrhage or abnormal extra-axial fluid collections are present. Calcification of the intracranial ICAs. No hyperdense vessel. The calvarium is intact. The mastoid air cells are clear. The visualized paranasal sinuses are clear. The orbits are normal. C-SPINE: There is reversal of the normal cervical lordosis. Vertebral body heights are maintained. No acute fracture, dislocation, or destructive osseous process. There is multilevel facet hypertrophy without perched facets. There is multilevel cervical spondylosis. Prominent degenerative changes at the C1-C2 joint. The paraspinous soft tissues are normal. The visualized thyroid gland is normal. The visualized lung apices are normal. IMPRESSION: 1. No acute intracranial abnormality. Mild chronic microangiopathy and volume loss. 2. Degenerative changes of the cervical spine without acute osseous abnormality. Dictated by: Dictated on workstation # [id number]
[2022-11-28 18:07] LABS: BILIRUBIN,URINE NEGATIVE (NEGATIVE); CLARITY,URINE CLEAR; COLOR,URINE YELLOW; GLUCOSE, URINE (UA) NEGATIVE (NEGATIVE); KETONES,URINE TRACE (NEGATIVE); LEUKOCYTE ESTERASE ,URINE NEGATIVE (NEGATIVE); NITRITE,URINE NEGATIVE (NEGATIVE); PH,URINE 6.5 (5-9); PROTEIN,URINE NEGATIVE (NEGATIVE)
[2022-11-28 18:14] LABS: BACTERIA,URINE NEGATIVE /HPF; SQUAMOUS EPITHELIAL CELL,UR RARE /HPF; WBC,URINE 0-2 /HPF
[2022-11-28 18:17] LABS: AMPHETAMINE SCREEN, URINE NEGATIVE (NEGATIVE); BARBITURATE SCREEN URINE NEGATIVE (NEGATIVE); BENZODIAZEPINES SCREEN URINE NEGATIVE (NEGATIVE); CANNABINOID SCREEN, URINE NEGATIVE (NEGATIVE); COCAINE SCREEN URINE NEGATIVE (NEGATIVE); METHADONE STAT NEGATIVE (NEGATIVE); OPIATE SCREEN URINE NEGATIVE (NEGATIVE); OXYCODONE STAT NEGATIVE (NEGATIVE); PROPOXYPHENE STAT NEGATIVE (NEGATIVE); TRICYCLIC ANTIDEPRESSANTS SCRE NEGATIVE (NEGATIVE)
--- NOTE | 2022-11-28 21:18 | Tele-ICU Progress Note ---
Progress Note 82F with Parkinson's, CAD, admitted with apparent cardiac arrest s/p autoresuscitation. Had an episode on 11/24 where she became unresponsive at dinner. Pulse not checked while unresponsive. On EMS arrival she was responsive but altered. She was evaluated in ED, work up unremarkable except incidental UTI which was treated. Tonight she was found slumped in her wheelchair, apneic. 911 was called. Police arrived first, found patient to be apneic and pulseless. Family declined resuscitative efforts and PD pronounced her. EMS arrived next. They were assessing her to confirm PD findings. Placed her on the monitor, found her to have minimal electrical activity with a very slow bradycardia, no pulse, no respiratory effort. She then suddenly took a gasping breath and then restored her pulse with bradycardia. In [facility] ED she gradually improved until retur ansley to her baseline cognition, now alert and conversant. Work up is again essentially unremarkable. Hg 9.7 from 11.8 on 11/24. UA no longer with pyuria. A/P: - Cardiac Arrest/bradycardia: No evidence of metabolic/lactic acidosis, transaminitis, troponemia or renal impairment that would be expected after cardiac arrest, particularly in this case where she has >5 min documented pulselessness between PD and EMS eval, but more likely since the initial 911 call was placed. Suspect that this patient had a severely bradycardic episode with enough perfusion to maintain basic metabolic functions. She is not on any medication that would affect the HR, only Isordil and lisinopril for HTN. Cardiology consulted (at bedside assessing). - anemia: 2g Hg drop in past 4 days. Unclear significance. No overt bleeding. HD stable, BP 148/75, HR 65. Repeat in AM. - UTI: Received Rocephin x1 11/24, then cefpodoxime x7 days. Culture with Aerococcus >100k cfu and bifidobacterium 60k CFU. UA without ongoing pyuria. Can complete course of cefpodoxime. patient assessed via real-time audiovisual communication system. CCT 22 min Focused Exam Lactate Level 11/28/22 16:45: Lactic Acid Level 0.74 Height, Weight, BMI Height: '" Weight: lbs. oz. kg; 20.31 BMI Method: LUZ BURGESS MD Nov 28, 2022 21:18
[2022-11-28] MEDS ORDERED: CATHETER FLUSH 10 ML SYR IVP PRN ×2 (21:45→22:45)
[2022-11-28] MEDS ORDERED: ONDANSETRON 4 MG/2 ML (SDV) Z0FRAN IV PRN (21:45)
[2022-11-28] MEDS ORDERED: CATHETER FLUSH 10 ML SYR IVP SCH (22:00)
--- NOTE | 2022-11-28 22:13 | Consultation-Cardiology ---
HPI-Cardiology Cardiology Consultation: Date of Consultation 11/28/22 Time Seen by a Provider: 22:00 Date of Admission Attending Physician Roderick Arita MD Admitting Physician Admitting Physician: Amna Brumfield MD Attending Physician: Amna Brumfield MD Consulting Physician VADIM BRITO MD, MA, FACP, FACC, FSCAI, CCDS Physician requesting consult: Dr Brumfield Primary research & insights executive: Dr Jacome HPI: Chief Complaint: Reason for Card consult: Syncope 82 yo woman who was brought to the ER at [facility] with unresponsiveness. Has been noted by her son-in-law to have become unresponsive. Apparently, had no pul se and was not breathing when first responders (police) saw her and this was confirmed by EMS when they arrived. On monitor, is stated to have a bradycardic rhythm and there wasn't any associated pulse (per description provided to the ER physician by EMS). No strips of this rhythm were recorded. Apparently, then she started to breathe, regained pulse and slowly regained consciousness. No cocumentation of how long she was out for and w/o pulse and bp. She herself is appropriately responsive now and has no recollection of the event. She does recall one episode of passing out (w/o injury) several days ago when she was visiting with a friend. Details of that event are unclear. She did go to [facility] ER that day and was d/c'd with a diagnosis of UTI. She does not report cp or palp or swelling or shortness of breath. She does note intermittent dizziness. Review of Systems-Cardiology Review of Systems Constitutional: malaise, tiredness, weight loss (several lbs wgt loss in the last year, followed by her pcp); No weight gain Eyes: No vision change Ears/Nose/Throat: No ear discharge, No nasal drainage, No recent hearing loss Respiratory: As described under HPI Cardiovascular: As described under HPI Gastrointestinal: No diarrhea, No nausea, No vomiting Genitourinary: No hematuria, No urine frequency changes : No Musculoskeletal: back pain (chronic) Skin: No rash, No ulcerations Psychiatric/Neurological: other (chronic bilateral leg weakness, chronic tremor that is intermitten) Hematologic: No bleeding abnormalities LCI-Lctdwp-Hqraso Hx Patient Social History Smoking Status: Never a Smoker 2nd Hand Smoke Exposure: No Have you traveled recently?: No Alcohol Use?: No Pt feels they are or have been: No Immunizations Up To Date Date of Influenza Vaccine: Apr 25, 2020 Past Medical History PMH As described under Assessment. Family Medical History Family Medical History: She does not report fam h/o premature CAD or SCD Allergies and Home Medications Allergies Coded Allergies: meloxicam (Verified Allergy, Severe, 05/04/20) THROAT SWELLING hydrochlorothiazide (Verified Allergy, Intermediate, 05/04/20) DRY MOUTH AND SWOLLEN TONGUE triamterene (Verified Allergy, Intermediate, 05/04/20) DRY MOUTH AND SWOLLEN TONGUE atorvastatin (Verified Allergy, Mild, 05/04/20) MUSCLE ACHES Penicillins (Verified Allergy, Unknown, CHILDHOOD , 07/27/20) diclofenac (Verified Allergy, Unknown, 05/04/20) Patient Home Medication List Home Medication List Reviewed: Yes Acetaminophen (Acetaminophen) 325 Mg Tablet, 325 MG PO Q4H PRN for PAIN-MILD (1- 4), (Reported) Entered as Reported by: SAMIA DOMINGO on 05/04/20 1337 Aspirin (Aspirin EC) 81 Mg Tablet.dr, 81 MG PO 1500, (Reported) Entered as Reported by: SAMIA DOMINGO on 05/04/20 1337 Cefpodoxime Proxetil (Cefpodoxime Proxetil) 100 Mg Tablet, 100 MG PO BID Prescribed by: OLEKSANDR BRAGA MD on 11/24/22 1659 Ibuprofen (Ibuprofen) 200 Mg Capsule, 200 MG PO Q4H PRN for PAIN-MILD (1-4), (Reported) Entered as Reported by: SAMIA DOMINGO on 05/04/20 1334 Isosorbide Mononitrate (Isosorbide Mononitrate ER) 30 Mg Tab.er.24h, 30 MG PO 1700, (Reported) Entered as Reported by: SAMIA DOMINGO on 05/04/20 1334 Lisinopril (Lisinopril) 10 Mg Tablet, 10 MG PO DAILY, (Reported) Entered as Reported by: SAMIA DOMINGO on 05/04/20 1334 Magnesium Oxide (Magnesium) 400 Mg Tablet, 400 MG PO DAILY PRN for CONSTIPATION, (Reported) Entered as Reported by: SAMIA DOMINGO on 05/04/20 1344 Ondansetron (Ondansetron Odt) 4 Mg Tab.rapdis, 4 MG PO Q6H PRN for NAUSEA/VOMITING-1ST LINE Prescribed by: JONATHAN PURVIS on 07/11/20 1355 Rosuvastatin Calcium (Crestor) 5 Mg Tablet, 5 MG PO DAILY Prescribed by: CARLOS JACOME on 05/04/20 1507 Physical Exam-Cardiology Physical Exam Vital Signs/I&O 11/28/22 11/28/22 11/28/22 11/28/22 16:36 16:55 19:00 19:30 Temp 35.8 Pulse 56 56 62 Resp 18 14 16 B/P (MAP) 134/58 (83) 131/61 (84) 139/65 (89) Pulse Ox 100 100 100 O2 Delivery Non Rebreather Nasal Cannula Nasal Cannula O2 Flow Rate 10.00 2.00 2.00 FiO2 100 11/28/22 11/28/22 19:51 20:45 Temp 36.7 Pulse 62 Resp 16 14 B/P (MAP) 120/55 161/83 (109) Pulse Ox 99 98 O2 Delivery Room Air Room Air O2 Flow Rate 2.00 Capillary Refill : Less Than 3 Seconds Constitutional: AAO x 3, well-developed, other (thin appearing) HEENT: PERRL, EOMI, hearing is well preserved, oral hygience is good; No xanthelasmas are seen Neck: carotid pulses are 2 + bilaterally, with good upstrokes Respiratory: No accessory muscle use; chest expansion is symmetric, chest is bilaterally symmetric, other (fair to good, bilateral air entry) Cardiovascular: regular rate-rhythm, S1 and S2, systolic murmur (2/6 STEF at card base) Gastrointestinal: No tender; soft; No guarding, No rebound; audible bowel sounds Extremities: No clubbing, No cyanosis, No significant edema Neurologic/Psychiatric: oriented x 3, other (moves all limbs) Skin: No rash on exposed areas, No ulcerations on exposed areas Data Review Labs Laboratory Tests 11/28/22 16:35: Blood Gas Puncture Site RT BRACHIAL, Blood Gas Patient Temperature 35.8, Arterial Blood pH 7.49H, Arterial Blood Partial Pressure CO2 37, Arterial Blood Partial Pressure O2 298H, Arterial Blood HCO3 28H, Arterial Blood Total CO2 29.3, Arterial Blood Oxygen Saturation 100, Arterial Blood Base Excess 4.7H, Alonzo Test NA, Blood Gas Ventilator Setting NO, Blood Gas Inspired Oxygen 6 L MASK 11/28/22 16:45: White Blood Count 6.2, Red Blood Count 2.92L, Hemoglobin 9.7L, Hematocrit 29L, Mean Corpuscular Volume 100H, Mean Corpuscular Hemoglobin 33, Mean Corpuscular Hemoglobin Concent 33, Red Cell Distribution Width 13.5, Platelet Count 140, Mean Platelet Volume 10.3, Immature Granulocyte % (Auto) 1, Neutrophils (%) (Auto) 76H, Lymphocytes (%) (Auto) 16, Monocytes (%) (Auto) 6, Eosinophils (%) (Auto) 1, Basophils (%) (Auto) 0, Neutrophils # (Auto) 4.7, Lymphocytes # (Auto) 1.0, Monocytes # (Auto) 0.4, Eosinophils # (Auto) 0.1, Basophils # (Auto) 0.0, Immature Granulocyte # (Auto) 0.1, Percent Immature Platelet Fraction 3.0, Sodium Level 134L, Potassium Level 4.4, Chloride Level 102, Carbon Dioxide Level 21, Anion Gap 11, Blood Urea Nitrogen 10, Creatinine 0.66, Estimat Glomerular Filtration Rate 87, BUN/Creatinine Ratio 15, Glucose Level 110H, Lactic Acid Level 0.74, Calcium Level 8.8, Corrected Calcium 9.2, Magnesium Level 2.0, Total Bilirubin 0.5, Aspartate Amino Transf (AST/SGOT) 19, Alanine Aminotransferase (ALT/SGPT) < 5, Alkaline Phosphatase 53, Myoglobin 82.0H, Troponin I < 0.30, Pro-B-Type Natriuretic Peptide 413.3, Total Protein 5.7L, Albumin 3.5, Serum Alcohol < 10 11/28/22 17:05: Prothrombin Time 13.3, INR Comment 1.0, Activated Partial Thromboplast Time 25 11/28/22 18:00: Urine Color YELLOW, Urine Clarity CLEAR, Urine pH 6.5, Urine Specific [place] 1.015L, Urine Protein NEGATIVE, Urine Glucose (UA) NEGATIVE, Urine Ketones TRACEH, Urine Nitrite NEGATIVE, Urine Bilirubin NEGATIVE, Urine Urobilinogen 1.0, Urine Leukocyte Esterase NEGATIVE, Urine RBC (Auto) NEGATIVE, Urine RBC NONE, Urine WBC 0-2, Urine Squamous Epithelial Cells RARE, Urine Crystals NONE, Urine Bacteria NEGATIVE, Urine Casts NONE, Urine Mucus SMALLH, Urine Culture Indicated NO, Urine Opiates Screen NEGATIVE, Urine Oxycodone Screen NEGATIVE, Urine Methadone Screen NEGATIVE, Urine Propoxyphene Screen NEGATIVE, Urine Barbiturates Screen NEGATIVE, Ur Tricyclic Antidepressants Screen NEGATIVE, Urine Phencyclidine Screen NEGATIVE, Urine Amphetamines Screen NEGATIVE, Urine Methamphetamines Screen NEGATIVE, Urine Benzodiazepines Screen NEGATIVE, Urine Cocaine Screen NEGATIVE, Urine Cannabinoids Screen NEGATIVE Laboratory Tests 11/28/22 16:45 A/P-Cardiology Assessment/Admission Diagnosis Syncope/unresponsiveness on 11/28/22 - stated to have had bradycardia and pulselessness, but no documentation of bradycardia Coronary artery disease - h/o LAD stenting by Dr. 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 Mild bilateral carotid stenosis, nonobstructive disease, ultrasound done in June 2021 Discussion and Recomendations * Observe in ICU * Continue ASA * Hold other cardiac meds at this time * May need a perm pacemaker * I discussed her CV issues with her VADIM BRITO MD FACP [facility] CCDS Nov 28, 2022 22:13
[2022-11-28] MEDS: PRAMIPEXOLE 0.5 MG TAB (MIRAPEX) PO SCH (22:57)
[2022-11-29 05:41] LABS: BASOPHILS % (AUTO) 0 % (0-10); EOSINOPHILS # (AUTO) 0.1 10^3/uL (0.0-0.3); EOSINOPHILS % (AUTO) 2 % (0-10); HEMATOCRIT 31 % (35-52); HEMOGLOBIN 10.7 g/dL (11.5-16.0); LYMPHOCYTES # (AUTO) 1.3 10^3/uL (1.0-4.0); LYMPHOCYTES % (AUTO) 26 % (12-44); MEAN CORPUSCULAR HEMOGLOBIN 33 pg (25-34); MEAN CORPUSCULAR HGB CONC 34 g/dL (32-36); MEAN CORPUSCULAR VOLUME 96 fL (80-99); MEAN PLATELET VOLUME 10.2 fL (9.0-12.2); MONOCYTES # (AUTO) 0.4 10^3/uL (0.0-1.0); MONOCYTES % (AUTO) 7 % (0-12); NEUTROPHILS # (AUTO) 3.2 10^3/uL (1.8-7.8); NEUTROPHILS % (AUTO) 64 % (42-75); PLATELET COUNT 153 10^3/uL (130-400); WHITE BLOOD COUNT 5.1 10^3/uL (4.3-11.0)
[2022-11-29] MEDS: CATHETER FLUSH 10 ML SYR IVP SCH ×3 (06:15→21:36)
[2022-11-29 07:41] LABS: ALBUMIN 3.4 GM/DL (3.2-4.5); BILIRUBIN,TOTAL 0.8 MG/DL (0.1-1.0); CALCIUM 8.8 MG/DL (8.5-10.1); CREATININE SERUM 0.68 MG/DL (0.60-1.30); MAGNESIUM 1.9 MG/DL (1.6-2.4); PHOSPHORUS 3.3 MG/DL (2.3-4.7); POTASSIUM 3.6 MMOL/L (3.6-5.0); TOTAL PROTEIN 5.5 GM/DL (6.4-8.2)
[2022-11-29] MEDS: PRAMIPEXOLE 0.5 MG TAB (MIRAPEX) PO SCH ×3 (08:15→21:33)
[2022-11-29] MEDS: SINEMET 25/100 (CARBIDOPA/LEVODOPA) TAB PO SCH ×2 (08:15→13:06)
[2022-11-29] MEDS: ASPIRIN 325 MG (5 GR) TABLET PO SCH (08:15)
[2022-11-29 08:32] LABS: CHOLESTEROL 144 MG/DL (< 200); HDL CHOLESTEROL 51 MG/DL (40-60); TRIGLYCERIDES 58 MG/DL (<150); VLDL CHOLESTEROL 12 MG/DL (5-40)
--- NOTE | 2022-11-29 08:45 | Cardiology Progress Note ---
Subjective Date Seen by Provider: Nov 29, 2022 Time Seen by Provider: 08:40 Subjective/Events-last exam Patient was seen at bedside, laying down comfortably she denied any chest pain Reported that she has not been eating well for the past 2 days. Loss of appetite. No abdominal pain. No chest pain. Occasional palpitation Review of Systems General: No Chills, No Night Sweats; Fatigue, Malaise; No Appetite, No Other HEENT: No Head Aches, No Visual Changes, No Eye Pain, No Ear Pain, No Dysphasia, No Sinus Congestion, No Post Nasal Drip, No Sore Throat, No Other Pulmonary: No Dyspnea, No Cough, No Pleuritic Chest Pain, No Other Cardiovascular: No: Chest Pain, Palpitations, Orthopnea, Paroxysmal Noc. Dyspnea, Edema, Lt Headedness, Other Focused Exam Lactate Level 11/28/22 16:45: Lactic Acid Level 0.74 Objective-Cardiology Exam Last Set of Vital Signs Vital Signs 11/28/22 11/28/22 11/29/22 11/29/22 16:55 19:51 08:21 09:00 Temp 37.0 Pulse 66 Resp 14 B/P (MAP) 120/60 (80) Pulse Ox 97 O2 Delivery Room Air O2 Flow Rate 2.00 FiO2 100 I&O Intake and Output 11/29/22 00:00 Intake Total 550 ml Output Total 350 ml Balance 200 ml Intake Oral 50 ml IV Total 500 ml Output Urine Total 350 ml Daily Weight Change Yes, Greater than 33 lbs General: Alert, Oriented X3, Cooperative HEENT: Atraumatic, PERRLA Neck: Supple, No JVD, No Thyromegaly Lungs: Clear to Auscultation, Normal Air Movement Heart: Regular Rate, Normal S1, Normal S2, Other (Murmur at the left sternal border) Abdomen: Normal Bowel Sounds, Soft, No Tenderness, No Hepatosplenomegaly, No Masses Extremities: No Clubbing, No Cyanosis, No Edema, Normal Pulses, No Tenderness/Swelling Skin: No Rashes, No Breakdown, No Significant Lesion Neuro: Normal Gait, Normal Speech, Strength at 5/5 X4 Ext, Normal Tone, Sensation Intact Psych/Mental Status: Mental Status NL, Mood NL Results Lab Laboratory Tests 11/28/22 16:45 11/29/22 05:20 A/P-Cardiology Admission Diagnosis Syncope Bradycardia Coronary artery disease Hypertension Assessment/Plan Syncope, had an episode of unresponsiveness on November 28, 2022 Reported that she had bradycardia and she was pulseless but no documentation of heart rate or blood pressure Has been having poor oral intake for the past 2 days. Stress test was done in August 2022 with no ischemia or infarction on SPECT images, stress score 2, SDS 2, ejection fraction of 84% In the hospital no arrhythmia detected on telemetry. I will plan to evaluate echocardiogram Coronary artery disease History of LAD stenting by Dr. Irby. Cardiac catheterization done in May 2020 with heavily calcified left main, tortuous LAD, patent stent in the mid LAD, 50% stenosis in the distal and 50 to 60% stenosis at the far distal portion of the test vessel. Large circumflex artery with 40 to 50% stenosis in the midportion. Ejection fraction 60% History of Parkinson and progressive myopathy. Using a walker and a wheelchair. Followed by neurologist Dr. Forrest in [place]. Hypertension, controlled, monitor blood pressure Hyperlipidemia, intolerant to statin and Zetia with severe muscle ache and muscle weakness Mild bilateral carotid stenosis nonobstructive disease, last ultrasound was done in June 2021 CARLOS RAMEY MD Nov 29, 2022 08:45
--- NOTE | 2022-11-29 10:26 | Tele-ICU Progress Note ---
Subjective Date Seen by a Provider: Nov 29, 2022 Time Seen by a Provider: 10:26 Subjective/Events-last exam (Tele-ICU Physician , Progress Note ) Service provided via interactive audio and video telecommunications E-CARE system to a patient admitted to ICU bed in [facility]. Patient is seen today due to persistent need of ICU care Available chart/ vitals / labs / Images reviewed Video assessment done using teleICU camera, rest of exam as per RN Discussed with RN Events overnight : , AAO , baseline Afebrile hemodynamically stable Respiratory - ra I/O =even Drips: Pressors- no Hospital course: A/P Syncope, had an episode of unresponsiveness on November 28, 2022 -bradycardia/? pulseless - h/o CAD , s/p stenting 2019 LAD , EF 60 % - as per cards History of Parkinson and progressive myopathy. Lines : periph , (Central Line Necessity Reviewed) Henry: OG: Nutrition: po Analgesia: Anxiety/ delirium VTE Prophylaxis: scd Stress Ulcer Prophylaxis: na Plans in collaboration with bedside consultants and IM MDs. Discussed with RN to reach out if any questions or concerns Case and care daily discussed on multidisciplinary rounds ( RN, PharmD, Board Liner Operator , Respiratory Therapy, food service worker ) A total of 5 minutes of critical care time was devoted to this patient today, required to treat and/or prevent further deterioration of critical care condition ( as above ) . I am remotely monitoring this patient from another state. I am unable to do the bedside exam, and history/physical and pertinent information is taken from other notes in the computer and bedside staff. Sepsis Event Evaluation Height, Weight, BMI Height: '" Weight: lbs. oz. kg; 20.31 BMI Method: Focused Exam Lactate Level 11/28/22 16:45: Lactic Acid Level 0.74 Exam Exam Patient acknowledged, consented, and participated in this virtual visit which was conducted using real time audio/video Vital Signs Date Time Temp Pulse Resp B/P (MAP) Pulse Ox O2 Delivery O2 Flow Rate FiO2 11/29/22 10:00 56 14 103/48 (66) 97 Room Air 11/29/22 09:00 66 14 120/60 (80) 97 Room Air 11/29/22 08:21 37.0 11/29/22 08:10 Room Air 11/29/22 08:00 61 15 147/77 (100) 97 Room Air 11/29/22 07:23 61 11/29/22 07:00 52 12 157/76 (103) 98 Room Air 11/29/22 06:00 52 11 166/74 (112) 97 11/29/22 05:00 36.2 57 12 160/83 (89) 97 Room Air 11/29/22 04:10 Room Air 11/29/22 04:00 53 12 158/76 (102) 97 11/29/22 03:00 55 15 159/79 (105) 97 Room Air 11/29/22 02:00 61 13 159/83 (111) 97 Room Air 11/29/22 01:00 60 11/29/22 01:00 58 21 145/91 (108) 97 11/29/22 00:08 Room Air 11/29/22 00:00 36.1 60 14 143/75 (97) 97 Room Air 11/28/22 23:00 58 14 164/82 (112) 98 11/28/22 22:15 58 163/82 (96) 96 11/28/22 22:00 61 20 150/84 (111) 93 Room Air 11/28/22 21:45 57 18 153/74 (107) 97 11/28/22 21:30 57 12 148/72 (102) 96 11/28/22 21:15 64 14 138/70 (102) 96 11/28/22 21:14 64 11/28/22 21:00 Room Air 11/28/22 21:00 61 18 148/76 (108) 98 11/28/22 20:45 36.7 14 161/83 (109) 98 Room Air 11/28/22 19:51 62 16 120/55 99 Room Air 2.00 11/28/22 19:30 62 16 139/65 (89) 100 Nasal Cannula 2.00 11/28/22 19:00 56 14 131/61 (84) 100 Nasal Cannula 2.00 11/28/22 16:55 Non Rebreather 10.00 100 11/28/22 16:36 35.8 56 18 134/58 (83) 100 I & O 11/29/22 07:00 Intake Total 700 ml Output Total 610 ml Balance 90 ml Height & Weight Height: '" Weight: lbs. oz. kg; 20.31 BMI Method: General Appearance: No Apparent Distress, WD/WN, Thin, Other (Pale) HEENT: PERRL/EOMI, Normal ENT Inspection, Pharynx Normal, Other (Bruise on the right cheek) Neck: Normal Inspection Respiratory: Lungs Clear, Normal Breath Sounds, No Accessory Muscle Use, No Respiratory Distress Cardiovascular: Regular Rate, Rhythm, No Murmur; No JVD; Other (Mild to moderate lower extremity edema) Capillary Refill: Less Than 3 Seconds Extremity: Non Tender, Pedal Edema, Swelling Neurologic/Psychiatric: Alert, No Motor/Sensory Deficits, Normal Mood/Affect, Other (Initially disoriented with cloudy cognition. This resolved to alert, oriented, and conversational during the course of her ER stay.) Skin: Normal Color, Warm/Dry Results Lab Laboratory Tests 11/28/22 16:45 11/29/22 05:20 Assessment/Plan Assessment/Plan 1 JEREL RANDHAWA MD Nov 29, 2022 10:26
--- NOTE | 2022-11-29 10:47 | History & Physical ---
HPI History of Present Illness: Pt states she was brought because she passed out. She remembers sitting in her wheelchair by the door, let her dogs out and was watching them, then has no memory until ambulance ride to the ER. See other notes for details, daughter states she was at work and was called and told her mother had , and in fact says they were near the point of calling home when her mother started to arouse and become more alert. Today she states she is feeling "lazy", denies pain or any unusual feelings. Saturday she was at the ER due to episode of decreased responsiveness, had eaten, was talking and fine, her daughter came back in the room and she was not passed out but not with it. She had labs and CT that were okay, diagnosed with UTI and dehydration. Since then she has been feeling like her usual self. Uses wheelchair most of the time recently, is fairly unstable even with walker. Daughter at bedside provides some history, states other sister is medical DPOA and goes to visits with her, etc. She notes that on Saturday they had an appt with primary doctor and asked about HH and actually decided hospice may be better and were to meet with them today. Date seen by provider: Nov 29, 2022 Time Seen by Provider: 10:45 Attending Physician Roderick Arita MD PCP Admitting Physician: Amna Brumfield MD Attending Physician: Amna Brumfield MD Consult Date of Admission Nov 28, 2022 at 20:35 Home Medications Home Medications Reviewed patient Home Medication Reconciliation performed by pharmacy medication reconciliations copier field service technician and/or nursing. Patients Allergies have been reviewed. Allergies Coded Allergies: meloxicam (Verified Allergy, Severe, 05/04/20) THROAT SWELLING hydrochlorothiazide (Verified Allergy, Intermediate, 05/04/20) DRY MOUTH AND SWOLLEN TONGUE triamterene (Verified Allergy, Intermediate, 05/04/20) DRY MOUTH AND SWOLLEN TONGUE atorvastatin (Verified Allergy, Mild, 05/04/20) MUSCLE ACHES Penicillins (Verified Allergy, Unknown, CHILDHOOD , 07/27/20) diclofenac (Verified Allergy, Unknown, 05/04/20) [id number] Hx Patient Social History Smoking Status: Never a Smoker 2nd Hand Smoke Exposure: No Recent Hopitalizations: No Alcohol Use?: No Have you traveled recently?: No Immunizations Up To Date Influenza Vaccine Up-to-Date: Yes; Up-to-Date First/Initial COVID19 Vaccinat: UNK Second COVID19 Vaccination Luis E: UNK Third COVID19 Vaccination Date: UNK Past Medical History PMHx: Parkinson disease Heart disease of uncertain type, follows with Dr. Jacome Coronary artery disease SurgHx: Coronary artery stenting Bilateral hip replacements Cholecystectomy Family Medical History Significant Family History: Psychiatric Problems (dementia) Review of Systems ([facility]) Constitutional: No fever EENTM: nose congestion (complains of allergies and persistent runny nose, uses sinus allergy medicine OTC); No throat pain Respiratory: No cough, No short of breath Cardiovascular: No chest pain Gastrointestinal: abdominal pain (intermittent), constipation (intermittent), loss of appetite ("food doesn't taste good") Genitourinary: No dysuria Musculoskeletal: joint pain (leg pain at times) Skin: No rash Psychiatric/Neurological: Denies Anxiety, Denies Depressed Reviewed Test Results Reviewed Test Results Lab Laboratory Tests Test 11/28/22 16:35 11/28/22 16:45 11/28/22 17:05 11/28/22 18:00 Range/Units Blood Gas Puncture Site RT BRACHIAL Blood Gas Patient Temperature 35.8 Arterial Blood pH 7.49 H 7.37-7.43 Arterial Blood Partial Pressure CO2 37 35-45 MMHG Arterial Blood Partial Pressure O2 298 H 79-93 MMHG Arterial Blood HCO3 28 H 23-27 MMOL/L Arterial Blood Total CO2 29.3 21.0-31.0 MMOL/L Arterial Blood Oxygen Saturation 100 94-100 % Arterial Blood Base Excess 4.7 H -2.5-2.5 MMOL/L Alonzo Test NA Blood Gas Ventilator Setting NO Blood Gas Inspired Oxygen 6 L MASK White Blood Count 6.2 4.3-11.0 10^3/uL Red Blood Count 2.92 L 3.80-5.11 10^6/uL Hemoglobin 9.7 L 11.5-16.0 g/dL Hematocrit 29 L 35-52 % Mean Corpuscular Volume 100 H 80-99 fL Mean Corpuscular Hemoglobin 33 25-34 pg Mean Corpuscular Hemoglobin Concent 33 32-36 g/dL Red Cell Distribution Width 13.5 10.0-14.5 % Platelet Count 140 130-400 10^3/uL Mean Platelet Volume 10.3 9.0-12.2 fL Immature Granulocyte % (Auto) 1 % Neutrophils (%) (Auto) 76 H 42-75 % Lymphocytes (%) (Auto) 16 12-44 % Monocytes (%) (Auto) 6 0-12 % Eosinophils (%) (Auto) 1 0-10 % Basophils (%) (Auto) 0 0-10 % Neutrophils # (Auto) 4.7 1.8-7.8 X 10^3 Lymphocytes # (Auto) 1.0 1.0-4.0 X 10^3 Monocytes # (Auto) 0.4 0.0-1.0 X 10^3 Eosinophils # (Auto) 0.1 0.0-0.3 10^3/uL Basophils # (Auto) 0.0 0.0-0.1 10^3/uL Immature Granulocyte # (Auto) 0.1 0.0-0.1 10^3/uL Percent Immature Platelet Fraction 3.0 0.0-7.6 % Sodium Level 134 L 135-145 MMOL/L Potassium Level 4.4 3.6-5.0 MMOL/L Chloride Level 102 98-107 MMOL/L Carbon Dioxide Level 21 21-32 MMOL/L Anion Gap 11 5-14 MMOL/L Blood Urea Nitrogen 10 7-18 MG/DL Creatinine 0.66 0.60-1.30 MG/DL Estimat Glomerular Filtration Rate 87 BUN/Creatinine Ratio 15 Glucose Level 110 H 70-105 MG/DL Lactic Acid Level 0.74 0.50-2.00 MMOL/L Calcium Level 8.8 8.5-10.1 MG/DL Corrected Calcium 9.2 8.5-10.1 MG/DL Magnesium Level 2.0 1.6-2.4 MG/DL Total Bilirubin 0.5 0.1-1.0 MG/DL Aspartate Amino Transf (AST/SGOT) 19 5-34 U/L Alanine Aminotransferase (ALT/SGPT) < 5 0-55 U/L Alkaline Phosphatase 53 40-136 U/L Myoglobin 82.0 H <58.0 NG/ML Troponin I < 0.30 <0.30 NG/ML Pro-B-Type Natriuretic Peptide 413.3 <450.0 PG/ML Total Protein 5.7 L 6.4-8.2 GM/DL Albumin 3.5 3.2-4.5 GM/DL Serum Alcohol < 10 <10 MG/DL Prothrombin Time 13.3 12.2-14.7 SEC INR Comment 1.0 0.8-1.4 Activated Partial Thromboplast Time 25 24-35 SEC Urine Color YELLOW Urine Clarity CLEAR Urine pH 6.5 5-9 Urine Specific [place] 1.015 L 1.016-1.022 Urine Protein NEGATIVE NEGATIVE Urine Glucose (UA) NEGATIVE NEGATIVE Urine Ketones TRACE H NEGATIVE Urine Nitrite NEGATIVE NEGATIVE Urine Bilirubin NEGATIVE NEGATIVE Urine Urobilinogen 1.0 < = 1.0 MG/DL Urine Leukocyte Esterase NEGATIVE NEGATIVE Urine RBC (Auto) NEGATIVE NEGATIVE Urine RBC NONE /HPF Urine WBC 0-2 /HPF Urine Squamous Epithelial Cells RARE /HPF Urine Crystals NONE /LPF Urine Bacteria NEGATIVE /HPF Urine Casts NONE /LPF Urine Mucus SMALL H /LPF Urine Culture Indicated NO Urine Opiates Screen NEGATIVE NEGATIVE Urine Oxycodone Screen NEGATIVE NEGATIVE Urine Methadone Screen NEGATIVE NEGATIVE Urine Propoxyphene Screen NEGATIVE NEGATIVE Urine Barbiturates Screen NEGATIVE NEGATIVE Ur Tricyclic Antidepressants Screen NEGATIVE NEGATIVE Urine Phencyclidine Screen NEGATIVE NEGATIVE Urine Amphetamines Screen NEGATIVE NEGATIVE Urine Methamphetamines Screen NEGATIVE NEGATIVE Urine Benzodiazepines Screen NEGATIVE NEGATIVE Urine Cocaine Screen NEGATIVE NEGATIVE Urine Cannabinoids Screen NEGATIVE NEGATIVE Test 11/29/22 05:20 Range/Units White Blood Count 5.1 4.3-11.0 10^3/uL Red Blood Count 3.24 L 3.80-5.11 10^6/uL Hemoglobin 10.7 L 11.5-16.0 g/dL Hematocrit 31 L 35-52 % Mean Corpuscular Volume 96 80-99 fL Mean Corpuscular Hemoglobin 33 25-34 pg Mean Corpuscular Hemoglobin Concent 34 32-36 g/dL Red Cell Distribution Width 13.2 10.0-14.5 % Platelet Count 153 130-400 10^3/uL Mean Platelet Volume 10.2 9.0-12.2 fL Immature Granulocyte % (Auto) 0 % Neutrophils (%) (Auto) 64 42-75 % Lymphocytes (%) (Auto) 26 12-44 % Monocytes (%) (Auto) 7 0-12 % Eosinophils (%) (Auto) 2 0-10 % Basophils (%) (Auto) 0 0-10 % Neutrophils # (Auto) 3.2 1.8-7.8 10^3/uL Lymphocytes # (Auto) 1.3 1.0-4.0 10^3/uL Monocytes # (Auto) 0.4 0.0-1.0 10^3/uL Eosinophils # (Auto) 0.1 0.0-0.3 10^3/uL Basophils # (Auto) 0.0 0.0-0.1 10^3/uL Immature Granulocyte # (Auto) 0.0 0.0-0.1 10^3/uL Sodium Level 137 135-145 MMOL/L Potassium Level 3.6 3.6-5.0 MMOL/L Chloride Level 105 98-107 MMOL/L Carbon Dioxide Level 23 21-32 MMOL/L Anion Gap 9 5-14 MMOL/L Blood Urea Nitrogen 8 7-18 MG/DL Creatinine 0.68 0.60-1.30 MG/DL Estimat Glomerular Filtration Rate 86 BUN/Creatinine Ratio 12 Glucose Level 80 70-105 MG/DL Calcium Level 8.8 8.5-10.1 MG/DL Corrected Calcium 9.3 8.5-10.1 MG/DL Phosphorus Level 3.3 2.3-4.7 MG/DL Magnesium Level 1.9 1.6-2.4 MG/DL Total Bilirubin 0.8 0.1-1.0 MG/DL Aspartate Amino Transf (AST/SGOT) 19 5-34 U/L Alanine Aminotransferase (ALT/SGPT) 10 0-55 U/L Alkaline Phosphatase 51 40-136 U/L Total Protein 5.5 L 6.4-8.2 GM/DL Albumin 3.4 3.2-4.5 GM/DL Triglycerides Level 59 <150 MG/DL Cholesterol Level 143 < 200 MG/DL LDL Cholesterol Direct 82 1-129 MG/DL VLDL Cholesterol 12 5-40 MG/DL HDL Cholesterol 53 40-60 MG/DL Radiology CT head/cervical spine 11/28: IMPRESSION: 1. No acute intracranial abnormality. Mild chronic microangiopathy and volume loss. 2. Degenerative changes of the cervical spine without acute osseous abnormality. CXR 11/28 unremarkable Physical Exam-([facility]) Physical Exam Vital Signs VS - Last 72 Hours, by Label 11/28/22 11/28/22 11/28/22 11/28/22 16:36 16:55 19:00 19:30 Temp 35.8 Pulse 56 56 62 Resp 18 14 16 B/P (MAP) 134/58 (83) 131/61 (84) 139/65 (89) Pulse Ox 100 100 100 O2 Delivery Non Rebreather Nasal Cannula Nasal Cannula O2 Flow Rate 10.00 2.00 2.00 FiO2 100 11/28/22 11/28/22 11/28/22 11/28/22 19:51 20:45 21:00 21:00 Temp 36.7 Pulse 62 61 Resp 16 14 18 B/P (MAP) 120/55 161/83 (109) 148/76 (108) Pulse Ox 99 98 98 O2 Delivery Room Air Room Air Room Air O2 Flow Rate 2.00 11/28/22 11/28/22 11/28/22 11/28/22 21:14 21:15 21:30 21:45 Pulse 64 64 57 57 Resp 14 12 18 B/P (MAP) 138/70 (102) 148/72 (102) 153/74 (107) Pulse Ox 96 96 97 11/28/22 11/28/22 11/28/22 11/29/22 22:00 22:15 23:00 00:00 Temp 36.1 Pulse 61 58 58 60 Resp 20 14 14 B/P (MAP) 150/84 (111) 163/82 (96) 164/82 (112) 143/75 (97) Pulse Ox 93 96 98 97 O2 Delivery Room Air Room Air 11/29/22 11/29/22 11/29/22 11/29/22 00:08 01:00 01:00 02:00 Pulse 58 60 61 Resp 21 13 B/P (MAP) 145/91 (108) 159/83 (111) Pulse Ox 97 97 O2 Delivery Room Air Room Air 11/29/22 11/29/22 11/29/22 11/29/22 03:00 04:00 04:10 05:00 Temp 36.2 Pulse 55 53 57 Resp 15 12 12 B/P (MAP) 159/79 (105) 158/76 (102) 160/83 (89) Pulse Ox 97 97 97 O2 Delivery Room Air Room Air Room Air 11/29/22 11/29/22 11/29/22 11/29/22 06:00 07:00 07:23 08:00 Pulse 52 52 61 61 Resp 11 12 15 B/P (MAP) 166/74 (112) 157/76 (103) 147/77 (100) Pulse Ox 97 98 97 O2 Delivery Room Air Room Air 11/29/22 11/29/22 11/29/22 11/29/22 08:10 08:21 09:00 10:00 Temp 37.0 Pulse 66 56 Resp 14 14 B/P (MAP) 120/60 (80) 103/48 (66) Pulse Ox 97 97 O2 Delivery Room Air Room Air Room Air 11/29/22 11/29/22 11/29/22 11/29/22 11:00 11:30 11:30 12:00 Temp 36.8 Pulse 62 71 Resp 21 12 B/P (MAP) 137/60 (85) 140/68 (92) Pulse Ox 99 94 O2 Delivery Room Air Room Air Room Air 11/29/22 11/29/22 11/29/22 11/29/22 13:00 13:27 14:00 14:34 Pulse 71 69 67 Resp 34 34 20 B/P (MAP) 130/67 (88) 141/66 (91) Pulse Ox 99 98 O2 Delivery Room Air Room Air 11/29/22 11/29/22 11/29/22 15:00 15:33 16:00 Temp 36.5 Pulse 66 57 Resp 14 14 B/P (MAP) 147/67 (93) 129/69 (89) Pulse Ox 97 96 O2 Delivery Room Air Room Air Capillary Refill : Less Than 3 Seconds General Appearance: WD/WN, no apparent distress HEENT: PERRL/EOMI Respiratory: lungs clear, normal breath sounds Cardiovascular: regular rate, rhythm, no murmur Gastrointestinal: normal bowel sounds, non tender, soft Extremities: no pedal edema Neurologic/Psychiatric: movie editor II-XII nml as tested, alert, normal mood/affect; No abnormal cerebellar tests; motor weakness (4/5 strength in hip flexion both legs), other (oriented to self and location but not date, does know year) Skin: normal color, warm/dry Assessment/Plan Assessment/Plan Admission Status: Inpatient Order (span 2 midnights) Reason for Inpatient Admission: Apparent code event with underlying comorbidities (1) Recurrent episodes of unresponsiveness Status: Acute Assessment & Plan: Uncertain etiology, labs and imaging normal and not consistent with true cardiac arrest event. Cardiology consulted, appreciate recommendations, echo pending. Family already discussing hospice prior to this event, and will let us know if they decide to proceed with hospice (2) Parkinsons disease Status: Chronic Assessment & Plan: Resume home meds (3) Frequent falls Status: Acute Assessment & Plan: Mostly requiring wheelchair, family looking into more help at home vs nursing facility. network services project manager consulted. PT. (4) Coronary artery disease Status: Chronic Qualifiers: (5) Acute cystitis without hematuria Status: Acute Assessment & Plan: Diagnosed at prior ER visit- aerococcus urinaehominis, continue home antibiotic (6) Anemia Status: Acute Assessment & Plan: Undertain etiology, normocytic. Check iron studies, stool occult blood and peripheral smear. Qualifiers: Qualified Codes: D64.9 - Anemia, unspecified (7) Weight loss Status: Acute Assessment & Plan: Unintentional, with poor appetite/intake, suspected to be secondary to loss of taste related to PD. Further work-up considered pending final discussion on goals of care with family. AMNA BRUMFIELD MD Nov 29, 2022 10:47
[2022-11-29 13:42] LABS: ABSOLUTE RETIC # 45 10e9/uL (24-90); BASOPHILS % (AUTO) 0 % (0-10); EOSINOPHILS # (AUTO) 0.1 10^3/uL (0.0-0.3); EOSINOPHILS % (AUTO) 2 % (0-10); HEMATOCRIT 31 % (35-52); HEMOGLOBIN 10.5 g/dL (11.5-16.0); LYMPHOCYTES # (AUTO) 0.9 10^3/uL (1.0-4.0); LYMPHOCYTES % (AUTO) 16 % (12-44); MEAN CORPUSCULAR HEMOGLOBIN 33 pg (25-34); MEAN CORPUSCULAR HGB CONC 34 g/dL (32-36); MEAN CORPUSCULAR VOLUME 98 fL (80-99); MONOCYTES # (AUTO) 0.2 10^3/uL (0.0-1.0); MONOCYTES % (AUTO) 4 % (0-12); NEUTROPHILS # (AUTO) 4.5 10^3/uL (1.8-7.8); NEUTROPHILS % (AUTO) 78 % (42-75); PLATELET COUNT 157 10^3/uL (130-400); RETICULOCYTE % 1.43 % (0.50-2.40); WHITE BLOOD COUNT 5.7 10^3/uL (4.3-11.0)
[2022-11-29 14:15] LABS: ACANTHOCYTES SLIGHT
[2022-11-29 14:16] LABS: NEUTROPHILS % (MANUAL) 75 %
[2022-11-29 14:17] LABS: BAND NEUTROPHILS 5 %; EOSINOPHILS % (MANUAL) 1 %; LYMPHOCYTES % (MANUAL) 14 %; MONOCYTES % (MANUAL) 5 %
[2022-11-29] MEDS ORDERED: PRAM0.5T9 PO (15:10)
[2022-11-29] MEDS ORDERED: ASPI-1238 PO (15:10)
[2022-11-29] MEDS ORDERED: CEFP100T2 PO (15:10)
[2022-11-29] MEDS ORDERED: CARB1TAB41 PO (15:10)
[2022-11-29] MEDS ORDERED: PATIENT MAY USE OWN MED,SINGLE MED PO SCH (18:30)
[2022-11-29] MEDS ORDERED: CEFPODOXIME PROXETIL 100 MG PO SCH (21:00)
[2022-11-29] MEDS ORDERED: PRAMIPEXOLE 0.5 MG TAB (MIRAPEX) PO SCH (21:00)
[2022-11-29] MEDS: CEFDINIR 300 MG (OMNICEF) CAP PO SCH (21:33)
[2022-11-29] MEDS: CARB PO SCH (21:36)
[2022-11-29] MEDS: LEVO PO SCH (21:36)
[2022-11-30 04:05] LABS: BASOPHILS % (AUTO) 0 % (0-10); EOSINOPHILS # (AUTO) 0.1 10^3/uL (0.0-0.3); EOSINOPHILS % (AUTO) 2 % (0-10); HEMATOCRIT 33 % (35-52); HEMOGLOBIN 11.4 g/dL (11.5-16.0); LYMPHOCYTES # (AUTO) 1.1 10^3/uL (1.0-4.0); LYMPHOCYTES % (AUTO) 17 % (12-44); MEAN CORPUSCULAR HEMOGLOBIN 33 pg (25-34); MEAN CORPUSCULAR HGB CONC 34 g/dL (32-36); MEAN CORPUSCULAR VOLUME 97 fL (80-99); MEAN PLATELET VOLUME 9.7 fL (9.0-12.2); MONOCYTES # (AUTO) 0.5 10^3/uL (0.0-1.0); MONOCYTES % (AUTO) 7 % (0-12); NEUTROPHILS # (AUTO) 4.8 10^3/uL (1.8-7.8); NEUTROPHILS % (AUTO) 73 % (42-75); PLATELET COUNT 155 10^3/uL (130-400); WHITE BLOOD COUNT 6.6 10^3/uL (4.3-11.0)
[2022-11-30 05:54] LABS: ALBUMIN 3.1 GM/DL (3.2-4.5); CHLORIDE 105 MMOL/L (98-107); POTASSIUM 3.6 MMOL/L (3.6-5.0); SODIUM 137 MMOL/L (135-145)
[2022-11-30 05:56] LABS: CALCIUM 8.4 MG/DL (8.5-10.1)
[2022-11-30 05:57] LABS: GLUCOSE 82 MG/DL (70-105); TOTAL PROTEIN 5.3 GM/DL (6.4-8.2)
[2022-11-30 05:58] LABS: BILIRUBIN,TOTAL 0.7 MG/DL (0.1-1.0); CARBON DIOXIDE 24 MMOL/L (21-32)
[2022-11-30 06:00] LABS: ALKALINE PHOSPHATASE 49 U/L (40-136); CREATININE SERUM 0.67 MG/DL (0.60-1.30); GFR ESTIMATED 87; PHOSPHORUS 2.6 MG/DL (2.3-4.7)
[2022-11-30 06:02] LABS: BUN/CREATININE RATIO 12
[2022-11-30 06:03] LABS: ALANINE AMINOTRANSFERASE < 6 U/L (0-55); MAGNESIUM 1.9 MG/DL (1.6-2.4)
[2022-11-30] MEDS: CATHETER FLUSH 10 ML SYR IVP SCH ×3 (06:04→19:33)
--- NOTE | 2022-11-30 08:20 | Cardiology Progress Note ---
Subjective Date Seen by Provider: Nov 30, 2022 Time Seen by Provider: 08:18 Subjective/Events-last exam Patient is laying down in bed, feeling better No further syncopal episode, no arrhythmia detected Review of Systems General: No Chills, No Night Sweats; Fatigue, Malaise; No Appetite, No Other HEENT: No Head Aches, No Visual Changes, No Eye Pain, No Ear Pain, No D ysphasia, No Sinus Congestion, No Post Nasal Drip, No Sore Throat, No Other Pulmonary: No Dyspnea, No Cough, No Pleuritic Chest Pain, No Other Focused Exam Lactate Level 11/28/22 16:45: Lactic Acid Level 0.74 Objective-Cardiology Exam Last Set of Vital Signs Vital Signs 11/28/22 11/28/22 11/30/22 11/30/22 11/30/22 16:55 19:51 06:00 07:00 07:34 Temp 36.5 Pulse 59 Resp 16 B/P (MAP) 143/77 (99) Pulse Ox 100 O2 Delivery Room Air O2 Flow Rate 2.00 FiO2 100 I&O Intake and Output 11/30/22 00:00 Intake Total 1300 ml Output Total 1510 ml Balance -210 ml Intake Oral 1300 ml Output Urine Total 1510 ml General: Alert, Oriented X3, Cooperative HEENT: Atraumatic, PERRLA Neck: Supple, No JVD, No Thyromegaly Lungs: Clear to Auscultation, Normal Air Movement Heart: Regular Rate, Normal S1, Normal S2, Other (Murmur at the left sternal border) Abdomen: Normal Bowel Sounds, Soft, No Tenderness, No Hepatosplenomegaly, No Masses Extremities: No Clubbing, No Cyanosis, No Edema, Normal Pulses, No Tenderness/Swelling Skin: No Rashes, No Breakdown, No Significant Lesion Neuro: Normal Gait, Normal Speech, Strength at 5/5 X4 Ext, Normal Tone, Sensation Intact Psych/Mental Status: Mental Status NL, Mood NL Results Lab Laboratory Tests 11/29/22 13:16 11/30/22 03:54 11/30/22 04:57 A/P-Cardiology Admission Diagnosis Syncope Bradycardia Coronary artery disease Hypertension Assessment/Plan Syncope, had an episode of unresponsiveness on November 28, 2022 Reported that she had bradycardia and she was pulseless but no documentation of heart rate or blood pressure Has been having poor oral intake for the past 2 days. Stress test was done in August 2022 with no ischemia or infarction on SPECT images, stress score 2, SDS 2, ejection fraction of 84% In the hospital no arrhythmia detected on telemetry. 2D echo done on November 29, 2022 with normal left ventricular size and function, ejection fraction 60 to 65%, PA pressure 30 to 35 mmHg Generalized weakness, loss of energy, starting PT and OT Coronary artery disease History of LAD stenting by Dr. Irby. Cardiac catheterization done in May 2020 with heavily calcified left main, tortuous LAD, patent stent in the mid LAD, 50% stenosis in the distal and 50 to 60% stenosis at the far distal portion of the test vessel. Large circumflex artery with 40 to 50% stenosis in the midportion. Ejection fraction 60% History of Parkinson and progressive myopathy. Using a walker and a wheelchair. Followed by neurologist Dr. Forrest in [place]. Hypertension, controlled, monitor blood pressure Hyperlipidemia, intolerant to statin and Zetia with severe muscle ache and muscle weakness Mild bilateral carotid stenosis nonobstructive disease, last ultrasound was done in June 2021 On discharge recommend placement of Zio patch for monitoring for 2 weeks [facility] CARLOS RAMEY MD Nov 30, 2022 08:20
[2022-11-30] MEDS: PRAMIPEXOLE 0.5 MG TAB (MIRAPEX) PO SCH ×3 (08:37→19:32)
[2022-11-30] MEDS: LEVO PO SCH ×3 (08:37→19:33)
[2022-11-30] MEDS: CARB PO SCH ×3 (08:37→19:33)
[2022-11-30] MEDS: lisINopril 10 MG (PRINIVIL) TABLET PO SCH (08:38)
[2022-11-30] MEDS: CEFDINIR 300 MG (OMNICEF) CAP PO SCH ×2 (08:38→19:32)
[2022-11-30] MEDS: ASPIRIN 325 MG (5 GR) TABLET PO SCH (08:38)
[2022-11-30] MEDS: ISOSORBIDE MONONITRATE 30 MG (IMDUR) TAB PO SCH (08:38)
--- NOTE | 2022-11-30 08:52 | Progress Note ---
Subjective Subjective/Events-last exam Afebrile, no acute events, states she is feeling a little better today. Daughter at bedside this morning, her medical DPOA. Focused Exam Lactate Level 11/28/22 16:45: Lactic Acid Level 0.74 Objective Exam Last Set of Vital Signs Vital Signs Date Time Temp Pulse Resp B/P (MAP) Pulse Ox O2 Delivery O2 Flow Rate FiO2 11/30/22 08:00 70 24 134/80 (93) 97 Room Air 11/30/22 07:34 36.5 11/28/22 19:51 2.00 11/28/22 16:55 100 Capillary Refill : Less Than 3 Seconds I&O Intake and Output 11/30/22 00:00 Intake Total 1300 ml Output Total 1510 ml Balance -210 ml Intake Oral 1300 ml Output Urine Total 1510 ml General: Alert, No Acute Distress Lungs: Clear to Auscultation, Normal Air Movement Heart: Regular Rate, No Murmurs Abdomen: Normal Bowel Sounds, Soft Extremities: No Edema Neuro: Normal Gait, Normal Speech Psych/Mental Status: Mood NL Results/Procedures Lab Laboratory Tests 11/29/22 13:16: White Blood Count 5.7, Red Blood Count 3.17L, Hemoglobin 10.5L, Hematocrit 31L, Mean Corpuscular Volume 98, Mean Corpuscular Hemoglobin 33, Mean Corpuscular Hemoglobin Concent 34, Red Cell Distribution Width 13.2, Platelet Count 157, Mean Platelet Volume 10.0, Immature Granulocyte % (Auto) 0, Neutrophils (%) (Auto) 78H, Lymphocytes (%) (Auto) 16, Monocytes (%) (Auto) 4, Eosinophils (%) (Auto) 2, Basophils (%) (Auto) 0, Neutrophils # (Auto) 4.5, Lymphocytes # (Auto) 0.9L, Monocytes # (Auto) 0.2, Eosinophils # (Auto) 0.1, Basophils # (Auto) 0.0, Immature Granulocyte # (Auto) 0.0, Neutrophils % (Manual) 75, Lymphocytes % (Manual) 14, Monocytes % (Manual) 5, Eosinophils % (Manual) 1, Band Neutrophils 5, Percent Immature Platelet Fraction 2.6, Macrocytosis SLIGHT, Acanthocytes SLIGHT, Absolute Reticulocyte Count 45, Percent Reticulocyte Count 1.43, Iron Level 89, Total Iron Binding Capacity 229L, Unsaturated Iron Binding Capacity 140, Transferrin % Saturation 39, Ferritin 139.3 11/29/22 19:25: Stool Occult Blood Immunoassay NEGATIVE 11/30/22 03:54: White Blood Count 6.6, Red Blood Count 3.43L, Hemoglobin 11.4L, Hematocrit 33L, Mean Corpuscular Volume 97, Mean Corpuscular Hemoglobin 33, Mean Corpuscular Hemoglobin Concent 34, Red Cell Distribution Width 13.4, Platelet Count 155, Mean Platelet Volume 9.7, Immature Granulocyte % (Auto) 1, Neutrophils (%) (Auto) 73, Lymphocytes (%) (Auto) 17, Monocytes (%) (Auto) 7, Eosinophils (%) (Auto) 2, Basophils (%) (Auto) 0, Neutrophils # (Auto) 4.8, Lymphocytes # (Auto) 1.1, Monocytes # (Auto) 0.5, Eosinophils # (Auto) 0.1, Basophils # (Auto) 0.0, Immature Granulocyte # (Auto) 0.0 11/30/22 04:57: Sodium Level 137, Potassium Level 3.6, Chloride Level 105, Carbon Dioxide Level 24, Anion Gap 8, Blood Urea Nitrogen 8, Creatinine 0.67, Estimat Glomerular Filtration Rate 87, BUN/Creatinine Ratio 12, Glucose Level 82, Calcium Level 8.4L, Corrected Calcium 9.1, Phosphorus Level 2.6, Magnesium Level 1.9, Total Bilirubin 0.7, Aspartate Amino Transf (AST/SGOT) 16, Alanine Aminotransferase (ALT/SGPT) < 6, Alkaline Phosphatase 49, Total Protein 5.3L, Albumin 3.1L Microbiology 11/28/22 MRSA Screen - Final, Complete MRSA not isolated 11/28/22 Urine Culture - Preliminary, Resulted Culture In Progress 11/28/22 Blood Culture - Preliminary, Resulted No growth Radiology CT head/cervical spine 11/28: IMPRESSION: 1. No acute intracranial abnormality. Mild chronic microangiopathy and volume loss. 2. Degenerative changes of the cervical spine without acute osseous abnormality. CXR 11/28 unremarkable Assessment/Plan Assessment/Plan (1) Recurrent episodes of unresponsiveness Status: Acute Assessment & Plan: Uncertain etiology, labs and imaging normal and not consistent with true cardiac arrest event. Cardiology consulted, appreciate recommendations, echo pending. Family already discussing hospice prior to this event, and will let us know if they decide to proceed with hospice 11/30- planning for discharge to snf with Ziopatch placement at d/c. (2) Parkinsons disease Status: Chronic Assessment & Plan: Resume home meds (3) Frequent falls Status: Acute Assessment & Plan: Mostly requiring wheelchair, family looking into more help at home vs nursing facility. technical services librarian consulted. PT. (4) Coronary artery disease Status: Chronic Qualifiers: (5) Acute cystitis without hematuria Status: Acute Assessment & Plan: Diagnosed at prior ER visit- aerococcus urinaehominis, continue home antibiotic (6) Anemia Status: Acute Assessment & Plan: Undertain etiology, normocytic. Check iron studies, stool occult blood and peripheral smear. 11/30- stool occult blood neg, iron and ferritin nml, TIBC low consistent with anemia of chronic disease. Qualifiers: Qualified Codes: D63.8 - Anemia in other chronic diseases classified elsewhere (7) Weight loss Status: Acute Assessment & Plan: Unintentional, with poor appetite/intake, suspected to be secondary to loss of taste related to PD. Further work-up considered pending final discussion on goals of care with family. (8) DVT prophylaxis Status: Acute Assessment & Plan: Enoxaparin (9) Goals of care, counseling/discussion Status: Acute Assessment & Plan: Plan at this time per patient and daughter is to go to snf given difficulty managing at home with frequent falls. They may consider hospice in the future, but are not planning to proceed at this time. She does remain DNR. ROYCE GEIGER MD Nov 30, 2022 08:52
--- NOTE | 2022-11-30 09:47 | Occupational Therapy Eval ---
OT Evaluation-General/PLF Medical Diagnosis Admission Date Nov 28, 2022 at 20:35 Medical Diagnosis: episodes of unresponsiveness Onset Date: Nov 28, 2022 Therapy Diagnosis Therapy Diagnosis: weakness Precautions Precautions/Isolations: Fall Prevention, Standard Precautions, Pressure Ulcer Weight Bear Status Weight Bearing Restriction: Weight Bearing/Tolerated Referral Referral Reason: Evaluation/Treatment Medical History Pertinent Medical History: Parkinson's Additional Medical History Pt states she was brought because she passed out. She remembers sitting in her wheelchair by the door, let her dogs out and was watching them, then has no memory until ambulance ride to the ER. See other notes for details, daughter states she was at work and was called and told her mother had , and in fact says they were near the point of calling home when her mother started to arouse and become more alert. Saturday11/24/22 she was at the ER due to episode of decreased responsiveness, had eaten, was talking and fine, her daughter came back in the room and she was not passed out but not with it. She had labs and CT that were okay, diagnosed with UTI and dehydration. Since then she has been feeling like her usual self. Uses wheelchair most of the time recently, is fairly unstable even with walker. Daughter is medical DPOA and goes to visits with her, etc. She notes that on Saturday11/27/22 they had an appt with primary doctor and asked about HH and actually decided hospice may be better and were to meet with them 11/29/22. .Today 11/30/22 she states she is feeling weird and wobbly sitting on EOB and standing w/ 5 side steps w/ therapist Social History Home: Single Level Current Living Status: Alone ADL-Prior Level of Function SCALE: Activities may be completed with or without assistive devices. 9-Xmtcmggmbt-ctopzvn completes the activity by him/herself with no assistance from a helper. 5-Set-up or Clean-up Assistance-helper sets up or cleans up; patient completes activity. [place] assists only prior to or following the activity. 4-Supervision or Touching Assistance-helper provides verbal cues and/or touching/steadying and/or contact guard assistance as patient completes activity. Assistance may be provided throughout the activity or intermittently. 3-Partial/Moderate Assistance-helper does LESS THAN HALF the effort. [place] lifts, holds or supports trunk or limbs, but provides less than half the effort. 2-Substantial/Maximal Assistance-helper does MORE THAN HALF the effort. [place] lifts or holds trunk or limbs and provides more than half the effort. 1-Odypqnlwu-mnjjwn does ALL the effort. Patient does none of the effort to complete the activity. Or, the assistance of 2 or more helpers is required for the patient to complete the activity. If activity was not attempted, code reason: 7-Patient Refused. 9-Not Applicable-not attempted and the patient did not perform the activity before the current illness, exacerbation or injury. 10-Not Attempted due to Environmental Limitations-(lack of equipment, weather restraints, etc.). 88-Not Attempted due to Medical Conditions or Safety Concerns. Self Care: Needed Some Help Functional Cognition: Needed Some Help Drive Self: No OT Current Status Subjective Up in bed agreeable to OT Mental Status/Objective Patient Orientation: Person Attachments: Henry Catheter, IV, SCD's, Telemetry Current Glasses/Contacts: Yes Upper Extremity ROM BUE ROM WFLS Upper Extremity Strength +3/5 grossly MMT, unable to sustain during activity ADL-Treatment Eating (QC): 6 Oral Hygiene (QC): 5 Shower/Bathe Self (QC): 88 (poor balance, will required bed/sponge bath d/t enviromental and medical limitations) Upper Body Dressing (QC): 4 Lower Body Dressing (QC): 2 On/Off Footwear (QC): 2 Toileting Hygiene (QC): 2 Education OT Patient Education: Correct positioning, Modified ADL techniques, Progress toward Goal/Update tx plan, Purpose of tx/functional activities, Reviewed precautions, Rehab process, Safety issues, Transfer techniques Teaching Recipient: Patient Teaching Methods: Demonstration, Discussion Response to Teaching: Verbalize Understanding OT Assisted Goals Leather Case Finisher Goals Toileting Hygiene (QC): 4 Shower/Bathe Self (QC): 3 Upper Body Dressing (QC): 4 Lower Body Dressing (QC): 4 On/Off Footwear (QC): 4 Additional Goals: 3-ImproveStrength/Ilya 1=Demonstrate adherence to instructed precautions during ADL tasks. 2=Patient will verbalize/demonstrate understanding of assistive devices/modifications for ADL. 3=Patient will improve strength/tolerance for activity to enable patient to perform ADL's. OT Education/Plan Problem List/Assessment Assessment: Decreased Activ Tolerance, Decreased Safety Aware, Decreased UE Strength, Impaired Coordination, Impaired Funct Balance, Impaired Self-Care Skills Discharge Recommendations Plan/Recommendations: Continue POC Treatment Plan/Plan of Care Treatment,Training & Education: Yes Patient would benefit from OT for education, treatment and training to promote independence in ADL's, mobility, safety and/or upper extremity function for ADL's. Plan of Care: ADL Retraining, Functional Mobility, Group Exercise/Act as Ind, UE Funct Exercise/Act Treatment Duration: Nov 30, 2022 Frequency: 3 times per week (3-5 times per week) Estimated Hrs Per Day: .25 hour per day Agreement: Yes Rehab Potential: Fair Resting in bed, all needs met Time Start Time: 09:40 Stop Time: 10:02 DATE: Nov 30, 2022 Total Time Billed (hr/min): 22 Billed Treatment Time EVM 22 min RENU BANG OT Nov 30, 2022 09:47
[2022-11-30 11:05] VITALS: BP 121/59
[2022-11-30] MEDS: ENOXAPARIN 40 MG/0.4 ML (LOVENOX) SYR SQ SCH (11:19)
--- NOTE | 2022-11-30 12:04 | Physical Therapy Evaluation ---
PT Evaluation-General Medical Diagnosis Admission Date Nov 28, 2022 at 20:35 Medical Diagnosis: episodes of unresponsiveness Onset Date: Nov 28, 2022 Therapy Diagnosis Therapy Diagnosis: Gait deficit, strength deficit Precautions Precautions/Isolations: Fall Prevention, Standard Precautions, Pressure Ulcer Weight Bear Status Right Lower Extremity: Right Full Weight Bearing Left Lower Extremity: Left Full Weight Bearing Referral Physician: Dr. Jacome Reason for Referral: Evaluation/Treatment Medical History Pertinent Medical History: Parkinson's Reviewed History: Yes Social History Home: Single Level Current Living Status: Alone Entry Into Home: Stairs With Railing PT Steps Into Home: 6 Prior Prior Level of Function SCALE: Activities may be completed with or without assistive devices. 6-Angenhoksr-epmgaaa completes the activity by him/herself with no assistance from a helper. 5-Set-up or Clean-up Assistance-helper sets up or cleans up; patient completes activity. [place] assists only prior to or following the activity. 4-Supervision or Touching Assistance-helper provides verbal cues and/or touching/steadying and/or contact guard assistance as patient completes activity. Assistance may be provided throughout the activity or intermittently. 3-Partial/Moderate Assistance-helper does LESS THAN HALF the effort. [place] lifts, holds or supports trunk or limbs, but provides less than half the effort. 2-Substantial/Maximal Assistance-helper does MORE THAN HALF the effort. [place] lifts or holds trunk or limbs and provides more than half the effort. 6-Jqnlfxmoa-gizbdi does ALL the effort. Patient does none of the effort to complete the activity. Or, the assistance of 2 or more helpers is required for the patient to complete the activity. If activity was not attempted, code reason: 7-Patient Refused. 9-Not Applicable-not attempted and the patient did not perform the activity before the current illness, exacerbation or injury. 10-Not Attempted due to Environmental Limitations-(lack of equipment, weather restraints, etc.). 88-Not Attempted due to Medical Conditions or Safety Concerns. Bed Mobility: 6 Transfers (B,C,W/C): 6 Gait: 6 Stairs: 6 Indoor Mobility (Ambulation): Independent Stairs: Independent Prior Devices Use: Manual wheelchair, Walker PT Evaluation-Current Subjective Patient lying supine in bed upon PT arrival, agreeable to treatment. Patient rates pain at 0/10 currently. Objective Patient Orientation: Person, Place, Time, Situation ROM/Strength ROM Lower Extremities WFLs BLEs all planes Strength Lower Extremities 3+/5 all planes BLEs Sensory Vision: Wears Glasses Hearing: Functional Sensation Right Lower Extremit: Intact Sensation Left Lower Extremity: Intact Transfers Roll Left to Right (QC): 3 Sit to Lying (QC): 3 Lying to Sitting/Side of Bed(Q: 3 Sit to Stand (QC): 2 Chair/Muf-jh-Nlnna Xfer(QC): 3 Gait Does the Patient Walk?: Yes Mode of Locomotion: Walk Anticipated Mode of Locomotion: Both Walk 10 feet (QC): 2 Distance: 20 feet Gait Assistive Device: FWW Balance Sitting Static: Fair Sitting Dynamic: Fair Standing Static: Poor Standing Dynamic: Poor Assessment/Needs Patient tolerated treatment fair. Patient performs all bed mobility and transfers with mod/max A. Patient ambulates 20 feet with FWW, with mod/max A and frequent verbal cues for FWW progression and BLE progression. Patient very unsteady even with the FWW and demonstrates significant difficulty initiating steps. Tends to be retropulsive when standing and requires mod/max A to avoid falling. Patient in chair post treatment with all needs met, nursing notified, call light in hand, chair alarm activated. Rehab Potential: Fair PT Manager Marketing Sales Goals Nursing Home Goals PT Manager Marketing Sales Goals Time Frame: Dec 29, 2022 Roll Left & Right (QC): 4 Sit to Lying (QC): 4 Lying-Sitting on Side/Bed(QC): 4 Sit to Stand (QC): 4 Chair/Vfa-ad-Kshqw Xfer(QC): 4 Toilet Transfer (QC): 4 Does the Patient Walk: Yes Walk 10 feet (QC): 4 Walk 50ft with 2 Turns (QC): 4 Walk 150 ft (QC): 3 PT Plan Problem List Problem List: Activity Tolerance, Functional Strength, Safety, Balance, Gait, Transfer, Bed Mobility, ROM Treatment/Plan Treatment Plan: Continue Plan of Care Treatment Plan: Bed Mobility, Education, Functional Activity Ilya, Functional Strength, Group Therapy, Therapeutic Exercise, Transfers Treatment Duration: Dec 29, 2022 Frequency: 6 times per week Estimated Hrs Per Day: .25 hour per day Patient and/or Family Agrees t: Yes Safety Risks/Education Patient Education: Gait Training, Transfer Techniques Teaching Recipient: Patient Teaching Methods: Demonstration, Discussion Response to Teaching: Verbalize Understanding, Return Demonstration Time Time In: 1130 Time Out: 1155 DATE: Nov 30, 2022 Total Billed Treatment Time: 25 Total Billed Treatment Visit, heber LOPEZ JOHN A PT Nov 30, 2022 12:04
[2022-11-30 16:07] VITALS: BP 123/60
[2022-11-30 19:56] VITALS: BP 126/62
[2022-11-30 23:55] VITALS: BP 122/64
[2022-12-01 03:42] VITALS: BP 145/73
[2022-12-01] MEDS: CATHETER FLUSH 10 ML SYR IVP SCH ×2 (05:22→14:03)
[2022-12-01 05:31] LABS: BASOPHILS % (AUTO) 0 % (0-10); EOSINOPHILS # (AUTO) 0.1 10^3/uL (0.0-0.3); EOSINOPHILS % (AUTO) 1 % (0-10); HEMATOCRIT 33 % (35-52); HEMOGLOBIN 11.3 g/dL (11.5-16.0); LYMPHOCYTES # (AUTO) 0.8 10^3/uL (1.0-4.0); LYMPHOCYTES % (AUTO) 11 % (12-44); MEAN CORPUSCULAR HEMOGLOBIN 33 pg (25-34); MEAN CORPUSCULAR HGB CONC 34 g/dL (32-36); MEAN CORPUSCULAR VOLUME 98 fL (80-99); MEAN PLATELET VOLUME 9.7 fL (9.0-12.2); MONOCYTES # (AUTO) 0.4 10^3/uL (0.0-1.0); MONOCYTES % (AUTO) 6 % (0-12); NEUTROPHILS # (AUTO) 5.7 10^3/uL (1.8-7.8); NEUTROPHILS % (AUTO) 81 % (42-75); PLATELET COUNT 174 10^3/uL (130-400)
[2022-12-01 05:46] LABS: ALANINE AMINOTRANSFERASE < 6 U/L (0-55); ALBUMIN 3.3 GM/DL (3.2-4.5); ALKALINE PHOSPHATASE 54 U/L (40-136); BILIRUBIN,TOTAL 0.9 MG/DL (0.1-1.0); BUN/CREATININE RATIO 14; CALCIUM 8.8 MG/DL (8.5-10.1); CARBON DIOXIDE 22 MMOL/L (21-32); CHLORIDE 103 MMOL/L (98-107); CREATININE SERUM 0.72 MG/DL (0.60-1.30); GFR ESTIMATED 83; GLUCOSE 90 MG/DL (70-105); MAGNESIUM 1.9 MG/DL (1.6-2.4); PHOSPHORUS 2.8 MG/DL (2.3-4.7); POTASSIUM 3.6 MMOL/L (3.6-5.0); SODIUM 135 MMOL/L (135-145); TOTAL PROTEIN 5.6 GM/DL (6.4-8.2)
--- NOTE | 2022-12-01 07:23 | Progress Note - Hospitalist ---
Subjective HPI/CC On Admission Date Seen by Provider: Dec 01, 2022 Time Seen by Provider: 11:00 Focused Exam Lactate Level 11/28/22 16:45: Lactic Acid Level 0.74 Objective Exam Vital Signs Vital Signs Date Time Temp Pulse Resp B/P (MAP) Pulse Ox O2 Delivery O2 Flow Rate FiO2 12/01/22 11:10 36.7 67 16 124/63 (83) 97 Room Air 11/28/22 19:51 2.00 11/28/22 16:55 100 Capillary Refill : Less Than 3 Seconds Results/Procedures Lab Laboratory Tests 12/01/22 05:14 Patient resulted labs reviewed. MARLEEN MUNGUIA DO Dec 01, 2022 07:23
[2022-12-01 07:30] VITALS: BP 144/74
--- NOTE | 2022-12-01 08:37 | Physical Therapy Daily Note ---
PT Daily Note-Current Subjective States that she is doing better today. Pain Numeric Pain Scale: 0-No Pain Section J - Health Conditions 1. Rarely or not at all 2. Occasionally 3. Frequently 4. Almost constantly 8. Unable to answer Pain Effect on Sleep: 1 Pain Interference with Therapy: 1 Pain Interference w/Day-to-Day: 1 Transfers SCALE: Activities may be completed with or without assistive devices. 0-Vumcsjoemj-wgwfmca completes the activity by him/herself with no assistance from a helper. 5-Set-up or Clean-up Assistance-helper sets up or cleans up; patient completes activity. [place] assists only prior to or following the activity. 4-Supervision or Touching Assistance-helper provides verbal cues and/or touching/steadying and/or contact guard assistance as patient completes activity. Assistance may be provided throughout the activity or intermittently. 3-Partial/Moderate Assistance-helper does LESS THAN HALF the effort. [place] lifts, holds or supports trunk or limbs, but provides less than half the effort. 2-Substantial/Maximal Assistance-helper does MORE THAN HALF the effort. [place] lifts or holds trunk or limbs and provides more than half the effort. 0-Kfociafeu-ozjizj does ALL the effort. Patient does none of the effort to complete the activity. Or, the assistance of 2 or more helpers is required for the patient to complete the activity. If activity was not attempted, code reason: 7-Patient Refused. 9-Not Applicable-not attempted and the patient did not perform the activity before the current illness, exacerbation or injury. 10-Not Attempted due to Environmental Limitations-(lack of equipment, weather restraints, etc.). 88-Not Attempted due to Medical Conditions or Safety Concerns. Sit to Stand (QC): 4 Weight Bearing Right Lower Extremity: Right Full Weight Bearing Left Lower Extremity: Left Full Weight Bearing Gait Training Does the Patient Walk?: Yes Distance: 25' Walk 10 feet (QC): 5 Gait Persons Needed: 1 Gait Assistive Device: FWW Assessment Current Status: Good Progress Patient has difficulty initiating movements. PT Laborer [employer] Maintenance Goals Longterm Goals PT Laborer [employer] Maintenance Goals Time Frame: Dec 29, 2022 Roll Left & Right (QC): 4 Sit to Lying (QC): 4 Lying-Sitting on Side/Bed(QC): 4 Sit to Stand (QC): 4 Chair/Ogn-ca-Jpbpn Xfer(QC): 4 Toilet Transfer (QC): 4 Does the Patient Walk: Yes Walk 10 feet (QC): 4 Walk 50ft with 2 Turns (QC): 4 Walk 150 ft (QC): 3 PT Plan Treatment/Plan Treatment Plan: Continue Plan of Care Treatment Plan: Bed Mobility, Education, Functional Activity Ilya, Functional Strength, Group Therapy, Therapeutic Exercise, Transfers Treatment Duration: Dec 29, 2022 Frequency: 6 times per week Estimated Hrs Per Day: .25 hour per day Patient and/or Family Agrees t: Yes Time Time In: 0800 Time Out: 0815 DATE: Dec 01, 2022 Total Billed Treatment Time: 15 Total Billed Treatment 1, GT x 15' DANDRE CARRANZA PT Dec 01, 2022 08:37
[2022-12-01] MEDS: ASPIRIN 325 MG (5 GR) TABLET PO SCH (08:53)
[2022-12-01] MEDS: PRAMIPEXOLE 0.5 MG TAB (MIRAPEX) PO SCH ×2 (08:53→13:56)
[2022-12-01] MEDS: lisINopril 10 MG (PRINIVIL) TABLET PO SCH (08:53)
[2022-12-01] MEDS: ISOSORBIDE MONONITRATE 30 MG (IMDUR) TAB PO SCH (08:54)
[2022-12-01] MEDS: CEFDINIR 300 MG (OMNICEF) CAP PO SCH (08:54)
[2022-12-01] MEDS: ENOXAPARIN 40 MG/0.4 ML (LOVENOX) SYR SQ SCH (08:55)
[2022-12-01] MEDS: LEVO PO SCH ×2 (08:56→13:55)
[2022-12-01] MEDS: CARB PO SCH ×2 (08:56→13:55)
[2022-12-01 11:10] VITALS: BP 124/63
[2022-12-01] MEDS ORDERED: CARB1TAB41 PO (12:04)
[2022-12-01] MEDS ORDERED: ASPI-808 PO (12:04)
[2022-12-01] MEDS ORDERED: ISOS30TA82 PO (12:04)
[2022-12-01] MEDS ORDERED: ENOX40DI8 SQ (12:04)
[2022-12-01] MEDS ORDERED: CEFD300C3 PO (12:04)
[2022-12-01] MEDS ORDERED: LISI10TA25 PO (12:04)
[2022-12-01] MEDS ORDERED: PRAM0.5T9 PO (12:04)
--- NOTE | 2022-12-01 12:05 | Discharge Summary ---
Discharge Summary Hospital Course Was the Problem List Reviewed?: Yes Problems/Dx: (1) Recurrent episodes of unresponsiveness Status: Acute (2) Coronary artery disease Status: Chronic Qualifiers: (3) Frequent falls Status: Acute Hospital Course Date of Admission: Nov 28, 2022 at 20:35 Admission Diagnosis : Family Physician/Provider: Roderick Arita MD Date of Discharge: 12/01/22 Discharge Diagnosis: [ ] Hospital Course: Standard course after admitted for unresponsiveness but patient regained clin ical stability. NHP was arranged. Overall remains poor prognosis. DNR. Labs and Pending Lab Test: Laboratory Tests 12/01/22 05:14: White Blood Count 7.0, Red Blood Count 3.41L, Hemoglobin 11.3L, Hematocrit 33L, Mean Corpuscular Volume 98, Mean Corpuscular Hemoglobin 33, Mean Corpuscular Hemoglobin Concent 34, Red Cell Distribution Width 13.3, Platelet Count 174, Mean Platelet Volume 9.7, Immature Granulocyte % (Auto) 1, Neutrophils (%) (Auto) 81H, Lymphocytes (%) (Auto) 11L, Monocytes (%) (Auto) 6, Eosinophils (%) (Auto) 1, Basophils (%) (Auto) 0, Neutrophils # (Auto) 5.7, Lymphocytes # (Auto) 0.8L, Monocytes # (Auto) 0.4, Eosinophils # (Auto) 0.1, Basophils # (Auto) 0.0, Immature Granulocyte # (Auto) 0.0, Sodium Level 135, Potassium Level 3.6, Chloride Level 103, Carbon Dioxide Level 22, Anion Gap 10, Blood Urea Nitrogen 10, Creatinine 0.72, Estimat Glomerular Filtration Rate 83, BUN/Creatinine Ratio 14, Glucose Level 90, Calcium Level 8.8, Corrected Calcium 9.4, Phosphorus Level 2.8, Magnesium Level 1.9, Total Bilirubin 0.9, Aspartate Amino Transf (AST/SGOT) 18, Alanine Aminotransferase (ALT/SGPT) < 6, Alkaline Phosphatase 54, Total Protein 5.6L, Albumin 3.3 Microbiology 11/28/22 MRSA Screen - Final, Complete MRSA not isolated 11/28/22 Urine Culture - Final, Complete NO GROWTH 11/28/22 Blood Culture - Preliminary, Resulted No growth Home Meds Active Aspirin 325 Mg Tablet 325 Mg PO DAILY Enoxaparin Sodium 40 Mg/0.4 Ml Syringe 40 Mg SQ DAILY@1030 Cefdinir 300 Mg Capsule 300 Mg PO BID Carbidopa-Levo ER 50-200 Tab (Carbidopa/Levodopa) 50 Mg-200 Mg Tablet.er 1 Ea PO TID Pramipexole Dihydrochloride (Pramipexole Di-HCl) 0.5 Mg Tablet 0.5 Mg PO TID Lisinopril 10 Mg Tablet 10 Mg PO DAILY Isosorbide Mononitrate ER (Isosorbide Mononitrate) 30 Mg Tab.er.24h 30 Mg PO DAILY Reported Aspirin EC (Aspirin) 81 Mg Tablet.dr 81 Mg PO DAILY Cefpodoxime Proxetil 100 Mg Tablet 100 Mg PO BID FILLED 11-24-2022 #14/7 DAY SUPPLY Assessment/Pt Instructions PCP at [facility] Discharge Planning: <30 minutes discharge planning Discharge Instructions Discharge Diet: No Restrictions Discharge Physical Examination Vital Signs Vital Signs Date Time Temp Pulse Resp B/P (MAP) Pulse Ox O2 Delivery O2 Flow Rate FiO2 12/01/22 11:10 36.7 67 16 124/63 (83) 97 Room Air 11/28/22 19:51 2.00 11/28/22 16:55 100 Allergies: Coded Allergies: meloxicam (Verified Allergy, Severe, 05/04/20) THROAT SWELLING hydrochlorothiazide (Verified Allergy, Intermediate, 05/04/20) DRY MOUTH AND SWOLLEN TONGUE triamterene (Verified Allergy, Intermediate, 05/04/20) DRY MOUTH AND SWOLLEN TONGUE atorvastatin (Verified Allergy, Mild, 05/04/20) MUSCLE ACHES Penicillins (Verified Allergy, Unknown, CHILDHOOD , 07/27/20) diclofenac (Verified Allergy, Unknown, 05/04/20) Discharge Summary Date of Admission Nov 28, 2022 at 20:35 Date of Discharge Discharge Date: Dec 01, 2022 MARLEEN MUNGUIA DO Dec 01, 2022 12:05
--- NOTE | 2022-12-01 12:05 | Discharge Inst-Skilled Nursing ---
Discharge Inst-Skilled NF Reconcile Patient Problems Problems Reviewed?: Yes Patient Instructions Patient Problems: Debility Goal: [place] Consult/Follow Up/Orders Follow Up Appt.: PCP 1 week Skilled NF Admit to: Certification (SNF) I certify that SNF services are required to be given on an inpatient basis because of the above named patient's need for [facility]p care on a continuing basis for the conditions(s) for which he/she was receiving inpatient hospital services prior to his/her transfer to the SNF. [facility] Facility Order: Nursing Services, Supervisor [place] [employer] [place]-Evaluate & Treat, Physical Therapy-Evaluate & Treat, Speech Language-Evaluate & Treat Oxygen Delivery Method: Room Air Discharge Diet: No Restrictions Resuscitation Status: Do Not Resuscitate New & Resume Previous Orders New Medications: Aspirin (Aspirin) 325 Mg Tablet 325 MG PO DAILY, #30 TAB Cefdinir (Cefdinir) 300 Mg Capsule 300 MG PO BID, #10 CAP Enoxaparin Sodium (Enoxaparin Sodium) 40 Mg/0.4 Ml Syringe 40 MG SQ DAILY@1030, #14 SYRINGE Continued Medications: Carbidopa/Levodopa (Carbidopa-Levo ER 50-200 Tab) 50 Mg-200 Mg Tablet.er 1 EA PO TID, #90 TAB (This prescription has been renewed) Isosorbide Mononitrate (Isosorbide Mononitrate ER) 30 Mg Tab.er.24h 30 MG PO DAILY, #30 TAB (This prescription has been renewed) Lisinopril (Lisinopril) 10 Mg Tablet 10 MG PO DAILY, #30 TAB (This prescription has been renewed) Pramipexole Di-HCl (Pramipexole Dihydrochloride) 0.5 Mg Tablet 0.5 MG PO TID, #30 TAB (This prescription has been renewed) Discontinued Medications: Aspirin (Aspirin EC) 81 Mg Tablet.dr 81 MG PO DAILY, TAB Cefpodoxime Proxetil (Cefpodoxime Proxetil) 100 Mg Tablet 100 MG PO BID, TAB FILLED 11-24-2022 #14/7 DAY SUPPLY Sarah Rose Dec 01, 2022 12:05 SARAH ROSE DO Dec 01, 2022 12:05
--- NOTE | 2022-12-01 14:32 | Progress Note - Cardiology ---
Cardiology SOAP Progress Note Subjective: Mod gen malaise and weakness present No focal weakness No n/v/d No cp or palp or syncope Shortness of breath with activity Objective: I&O/Vital Signs 12/01/22 12/01/22 12/01/22 12/01/22 03:42 07:00 07:30 08:00 Temp 36.3 36.7 Pulse 56 57 58 Resp 16 18 B/P (MAP) 145/73 (97) 144/74 (97) Pulse Ox 98 99 O2 Delivery Room Air Room Air Room Air 12/01/22 11:10 Temp 36.7 Pulse 67 Resp 16 B/P (MAP) 124/63 (83) Pulse Ox 97 O2 Delivery Room Air 12/01/22 00:00 Intake Total 540 ml Balance 540 ml Constitutional: AAO x 3, well-developed, other (thin appearing) Respiratory: No accessory muscle use; chest expansion is symmetric, chest is bilaterally symmetric, other (fair to good, bilateral air entry) Cardiovascular: regular rate-rhythm, S1 and S2, systolic murmur (2/6 STEF at card base) Gastrointestional: No tender; soft; No guarding, No rebound; audible bowel sounds Extremities: No clubbing, No cyanosis, No significant edema Neurologic/Psychiatric: oriented x 3, other (moves all limbs) Skin: No rash on exposed areas, No ulcerations on exposed areas Results/Procedures: Labs Laboratory Tests 12/01/22 05:14: White Blood Count 7.0, Red Blood Count 3.41L, Hemoglobin 11.3L, Hematocrit 33L, Mean Corpuscular Volume 98, Mean Corpuscular Hemoglobin 33, Mean Corpuscular Hemoglobin Concent 34, Red Cell Distribution Width 13.3, Platelet Count 174, Mean Platelet Volume 9.7, Immature Granulocyte % (Auto) 1, Neutrophils (%) (Auto) 81H, Lymphocytes (%) (Auto) 11L, Monocytes (%) (Auto) 6, Eosinophils (%) (Auto) 1, Basophils (%) (Auto) 0, Neutrophils # (Auto) 5.7, Lymphocytes # (Auto) 0.8L, Monocytes # (Auto) 0.4, Eosinophils # (Auto) 0.1, Basophils # (Auto) 0.0, Immature Granulocyte # (Auto) 0.0, Sodium Level 135, Potassium Level 3.6, Chloride Level 103, Carbon Dioxide Level 22, Anion Gap 10, Blood Urea Nitrogen 10, Creatinine 0.72, Estimat Glomerular Filtration Rate 83, BUN/Creatinine Ratio 14, Glucose Level 90, Calcium Level 8.8, Corrected Calcium 9.4, Phosphorus Level 2.8, Magnesium Level 1.9, Total Bilirubin 0.9, Aspartate Amino Transf (AST/SGOT) 18, Alanine Aminotransferase (ALT/SGPT) < 6, Alkaline Phosphatase 54, Total Protein 5.6L, Albumin 3.3 Microbiology 11/28/22 MRSA Screen - Final, Complete MRSA not isolated 11/28/22 Urine Culture - Final, Complete NO GROWTH 11/28/22 Blood Culture - Preliminary, Resulted No growth Laboratory Tests 11/30/22 03:54 11/30/22 04:57 12/01/22 05:14 A/P: Assessment: Syncope/unresponsiveness on 11/28/22 in the setting of poor oral intake - reported bradycardia and pulselessness but no documentation - has maintained NSR w/o any significant arrhythmia during this hospitalization (managed by Dr Jacome in Card consult) - 2D echo done on November 29, 2022 (Dr Jacome): normal left ventricular size and function, ejection fraction 60 to 65%, PA pressure 30 to 35 mmHg Coronary artery disease - h/o LAD stenting by Dr. Godinez - Last card cath on May 04, 2020 (Dr Jacome): havily calcified left main, tortuous LAD, patent stent in the mid LAD with 50% stenosis in distal and 50-60% stenosis in the far distal vessel, large dominant circumflex artery with 40-50 percent stenosis in the midportion, normal LV size, EF 60% - Stress test by Dr Jacome in August 2022 with no ischemia or infarction on SPECT images, stress score 2, SDS 2, ejection fraction of 84% Parkinsonism and progressive myopathy and marked gen weakness - ambulates with a walker - managed by her neurologist Dr Sanchez in [place] Hypertension Hyperlipidemia - intolerance to statin and Zetia: severe muscle pain and muscle weakness. Mild bilateral carotid stenosis, nonobstructive disease, ultrasound done in June 2021 Plan: * I interviewed and examined her after having reviewed her hospital records * No arrhythmia found during this hosp. Dr Jacome has recommended a Zio patch to continue to monitor for arrhythmia for another two weeks. Ok to d/c to NH with the patch on [facility]ADIM BRITO [facility] Dec 01, 2022 14:32
== END 2022-12-01 14:32 | DRG 884 ==
LOC: EDUNIT# 16:14 → ER FS 16:16 → ICU 20:35 → 4TH 11-30 10:52
PROVIDERS: ADMIT Family Medicine; ATTEND Internal Medicine
DX: R40.4 Transient alteration of awareness (principal); N30.00 Acute cystitis without hematuria; R00.1 Bradycardia, unspecified; G20 Parkinson's disease; Z66 Do not resuscitate; I10 Essential (primary) hypertension; Z96.642 Presence of left artificial hip joint; I25.10 Atherosclerotic heart disease of native coronary artery without angina pectoris; D64.9 Anemia, unspecified; R29.6 Repeated falls; R63.4 Abnormal weight loss; Z95.5 Presence of coronary angioplasty implant and graft; Z79.899 Other long term (current) drug therapy; Z90.49 Acquired absence of other specified parts of digestive tract; Z90.710 Acquired absence of both cervix and uterus; Z71.89 Other specified counseling
CPT/HCPCS: 36415; 51702; 70450; 71045; 72125; 80053; 80061; 80306; 80320; 81000; 82274; 82728; 82805; 83540; 83550; 83605; 83735; 83874; 83880; 84100; 84484; 85007; 85025; 85027; 85045; 85055; 85610; 85730; 87040; 87081; 87088; 93005; 93041; 93306

== ENCOUNTER → 2022-12-01 | Outpatient (CLI) | payer MEDICARE, OTHER ==
[~2022-12-01] MED LIST changes: +ASPI-808 PO; +CARB1TAB41 PO; +CEFD300C3 PO; +ENOX40DI8 SQ; +PRAM0.5T9 PO
== END ==
LOC: CARD 14:35
PROVIDERS: ATTEND Internal Medicine Cardiovascular Disease
DX: R00.1 Bradycardia, unspecified (principal)
CPT/HCPCS: 93246